=== PATIENT | female | born 1960 | race African-American/Black ===

== ENCOUNTER 2016-07-05 10:44 | Emergency (ER) | payer OTHER ==
[~2016-07-05] VITALS: Ht 157.5 cm; Wt 72.6 kg
[~2016-07-05 10:44] MED LIST: AMLODIPINE BESY10 MG ORAL; BENAZEPRIL HCL40 MG ORAL; COZAAR25 MG ORAL; IBUPROFEN600 MG ORAL; IRON325 M1 PO; LACTULOSE20 GM/301 ORAL; NORVASC5 MG ORAL; PAXIL10 MG ORAL; PROTONIX40 MG ORAL
[2016-07-05 11:17] LABS: APPEARANCE,URINE CLEAR; KETONES,URINE NEGATIVE (NEGATIVE); LEUKOCYTE ESTERASE ,URINE 1+ (NEGATIVE); NITRITE,URINE NEGATIVE (NEGATIVE); PH,URINE 6 (4.5-8.0); PROTEIN,URINE 1+ (NEGATIVE); UROBILINOGEN,URINE 1 MG/DL (0.0-1.0)
[2016-07-05 11:25] VITALS: BP 177/91
[2016-07-05 11:43] LABS: BACTERIA,URINE FEW /HPF; MUCUS,URINE FEW /LPF (NONE/OCC); RBC,URINE 0-2 /HPF (0 - 2); SQUAMOUS EPITHELIAL CELL,UR FEW /LPF (NONE/OCC)
[2016-07-05 12:40] VITALS: BP 165/91
[2016-07-05 12:42] VITALS: BP 165/91
--- NOTE | 2016-07-08 16:17 | Emergency Room Report ---
History of Present Illness General Chief Complaint: Abdominal Pain Source: Patient Present Illness HPI 55 YO F FRANCISCO JAVIER from her clinic where she states "my insurance card wouldnt swipe so they could do any tests." She is c/o polyuria and lower pelvic pain for 2-3 weeks. Denies assoc fever/chills, nausea/vomiting, flank pain, diarrhea , sick contacts. Takes [place] at home, states "its not helping." Endorses regular marijuana use. Denies ETOH or other drugs. Allergies: Coded Allergies: PENICILLINS (Verified Adverse Reaction, Unknown, GI UPSET, 12/29/13) Patient History Past Medical History: none Past Surgical History: none Pertinent Family History: none Social History: Reports: drug use, smoking Last Menstrual Period: hyst Now: No Immunizations: UTD Reviewed Nursing Documentation: PMH: Agreed, PSxH: Agreed Nursing Documentation-PMH Past Medical History: No History, Except For Hx Cardiac Problems: No Hx Hypertension: Yes - TB Hx Asthma: Yes Hx Cancer: No Hx Gastrointestinal Problems: Yes - Chronic constipation Hx Neurological Problems: No Review of Systems All Other Systems: negative except mentioned in HPI Physical Exam Vital Signs Date Time Temp Pulse Resp B/P Pulse Ox O2 Delivery O2 Flow Rate FiO2 07/05/16 10:44 98.1 64 20 177/91 99 Room Air Sp02 EP Interpretation: reviewed, normal General Appearance: normal inspection, well appearing, no apparent distress, alert, GCS 15, non-toxic Head: normocephalic, atraumatic ENT: normal ENT inspection, hearing grossly normal, normal voice Neck: normal inspection, full range of motion, supple, no bony tend Respiratory: normal inspection, lungs clear, normal breath sounds, no respiratory distress, no retraction, no wheezing Cardiovascular #1: regular rate, rhythm, no edema Gastrointestinal: normal inspection, normal bowel sounds, non tender, soft, no guarding, no hernia Genitourinary: no CVA tenderness Musculoskeletal: normal inspection, back normal, normal range of motion, Erlinda' s Sign negative Neurologic: normal inspection, alert, oriented x3, responsive, sales clerk III-XII nml as tested, motor strength/tone normal, speech normal Psychiatric: normal inspection, judgement/insight normal, mood/affect normal Skin: normal inspection, normal color, no rash Medical Decision Making Diagnostic Impression: Primary Impression: Pelvic pain Additional Impressions: Opiate dependence, continuous Drug-seeking behavior ER Course 55 YO F with polyuria and 2-3 weeks of pelvic pain, opiate dependence. VSS. Afebrile. No focal abd ttp on serial exam. UA negative for infection Sp hysterectomy Specific request made by patient for IV dilaudid Multiple recent visits and documentation for similar behavior in the past I reassured patient I do not see current need for additional laboratory or imaging testing at this time It seems unlikely that "insurance card wouldnt swipe" as her card does not have a magnetic strip Advised to followup with clinic as needed [place], patient also endorsing headache now. Was given tylenol/reglan PO with improvement. I doubt SAH or meningitis given well appearance, and the aforementioned HPI and PE. Last Vital Signs Date Time Temp Pulse Resp B/P Pulse Ox O2 Delivery O2 Flow Rate FiO2 07/05/16 12:42 98.1 89 20 165/91 100 Room Air Status: improved Disposition: HOME, SELF-CARE Condition: Improved Patient Instructions: Abdominal Pain, Adult Additional Instructions: - Please follow up at your clinic today or Friday KALYN RANGEL M.D. Jul 08, 2016 16:17
== END 2016-07-05 12:46 | disposition home or self-care (01) ==
LOC: EDBD 10:44 → EMR 11:30
DX: R10.2 Pelvic and perineal pain (principal); F11.20 Opioid dependence, uncomplicated; Z76.5 Malingerer [conscious simulation]; Z88.0 Allergy status to penicillin; I10 Essential (primary) hypertension; F17.200 Nicotine dependence, unspecified, uncomplicated; Z87.09 Personal history of other diseases of the respiratory system; Z87.19 Personal history of other diseases of the digestive system; R35.8 Other polyuria; F12.90 Cannabis use, unspecified, uncomplicated; Z90.710 Acquired absence of both cervix and uterus
CPT/HCPCS: 80300; 81003; 99283

== ENCOUNTER 2017-06-04 19:00 | Emergency (ER) | payer OTHER ==
[~2017-06-04] VITALS: Ht 160 cm; Wt 63.5 kg
--- NOTE | 2017-06-04 20:12 | Emergency Room Report ---
History of Present Illness General Chief Complaint: Abdominal Pain Source: Patient, EMS Present Illness HPI 56-year-old female, history of former alcohol abuse, pancreatitis, p/w abdominal pain 2 days. Patient states pain started gradually, localized to the mid and left lower quadrant, non radiating, sharp in nature, intermittent. No relieving or exacerbating factors. Severity is 5/10. Pt reports n/v, 2 episodes of nbnb vomiting, 2 episodes of watery non bloody diarrhea Denies fever, chills. No hx of abdominal surgeries. No hx of endoscopies/colonoscopies. Allergies: Coded Allergies: PENICILLINS (Verified Adverse Reaction, Unknown, GI UPSET, 12/29/13) Patient History Past Medical History: see triage record Past Surgical History: none Pertinent Family History: none Reviewed Nursing Documentation: PMH: Agreed, PSxH: Agreed Nursing Documentation-PMH Past Medical History: No History, Except For Hx Cardiac Problems: No Hx Hypertension: Yes Hx Asthma: Yes Hx Cancer: No Hx Gastrointestinal Problems: Yes - Chronic constipation Hx Neurological Problems: No Hx Cerebrovascular Accident: No - TB Review of Systems All Other Systems: negative except mentioned in HPI Physical Exam Vital Signs Date Time Temp Pulse Resp B/P (MAP) Pulse Ox O2 Delivery O2 Flow Rate FiO2 06/04/17 18:39 97.9 71 20 149/90 99 Room Air Sp02 EP Interpretation: reviewed, normal General Appearance: alert, GCS 15, non-toxic, moderate distress Head: normocephalic, atraumatic Eyes: bilateral eye normal inspection, bilateral eye PERRL, bilateral eye EOMI ENT: normal ENT inspection, normal pharynx, normal voice, moist mucus membranes Neck: normal inspection, full range of motion, supple Respiratory: normal inspection, lungs clear, normal breath sounds, no respiratory distress, no retraction, no wheezing, speaking full sentences, chest symmetrical Cardiovascular #1: normal inspection, regular rate, rhythm, normal capillary refill Cardiovascular #2: 2+ radial (R), 2+ radial (L) Gastrointestinal: other - LLQ tenderness no guarding or rigidity Musculoskeletal: normal inspection, back normal, normal range of motion, non- tender Neurologic: normal inspection, alert, oriented x3, responsive, motor strength/ tone normal, sensory intact, normal gait, speech normal Psychiatric: normal inspection, judgement/insight normal, memory normal Skin: normal inspection, normal color, no rash, warm/dry, well hydrated, normal turgor Medical Decision Making Diagnostic Impression: Primary Impression: Abdominal pain Additional Impression: Enteritis ER Course 56-year-old female with abdominal pain Status post cholecystectomy several years ago Differential Diagnosis: Gastritis, gastroenteritis, cholecystitis, appendicitis, diverticulitis, UTI/ pyelo, pancreatitis Plan: Basic labs, ua, ekg Pepcid, maalox, pain control, IVF, CT of the pelvis ER course: Patient has remained stable during ED stay. CT neg except possible enteritis, pt has been having diarrhea repeat abd exam benign HD stable will dc home Disposition: Patient is to be discharged to home. Patient is instructed to follow up with their primary care doctor within 5 days. Strict return precautions discussed with patient such as fever, chills, worsening/severe abdominal pain, nausea, vomiting, black or bloody stools, which may indicate severe illness. Patient verbalizes understanding and agrees with plan. Please note that this Emergency Department Report was dictated using [employer] technology software, occasionally this can lead to erroneous entry secondary to interpretation by the dictation equipment Rhythm Strip EP Interpretation: Yes Rate:79 Rhythm: NSR, no PVCs, no ectopy EKG Diagnostic Results EP Interpretation: Yes Rate: Bradycardiac Rhythm: NSR ST Segments: No acute changes ASA given to patient: No Laboratory Tests Test 06/04/17 19:37 06/04/17 19:45 Urine Color Yellow Urine Appearance Clear Urine pH 6 (4.5-8.0) Urine Specific [place] 1.020 (1.005-1.035) Urine Protein Negative (NEGATIVE) Urine Glucose (UA) Negative (NEGATIVE) Urine Ketones Negative (NEGATIVE) Urine Occult Blood Negative (NEGATIVE) Urine Nitrite Negative (NEGATIVE) Urine Bilirubin Negative (NEGATIVE) Urine Urobilinogen Normal MG/DL (0.0-1.0) Urine Leukocyte Esterase 1+ (NEGATIVE) H Urine RBC 0-2 /HPF (0 - 2) Urine WBC 2-4 /HPF (0 - 2) Urine Squamous Epithelial Cells Few /LPF (NONE/OCC) Urine Calcium Oxalate Crystals Few /LPF (NONE) Urine Amorphous Sediment Few /LPF (NONE) H Urine Bacteria Few /HPF (NONE) Urine Opiates Screen Negative (NEGATIVE) Urine Barbiturates Screen Negative (NEGATIVE) Phencyclidine (PCP) Screen Negative (NEGATIVE) Urine Amphetamines Screen Negative (NEGATIVE) Urine Benzodiazepines Screen Negative (NEGATIVE) Urine Cocaine Screen Negative (NEGATIVE) Urine Marijuana (THC) Screen Positive (NEGATIVE) H White Blood Count 6.2 K/UL (4.8-10.8) Red Blood Count 4.02 M/UL (4.20-5.40) L Hemoglobin 11.6 G/DL (12.0-16.0) L Hematocrit 37.7 % (37.0-47.0) Mean Corpuscular Volume 94 FL (80-99) Mean Corpuscular Hemoglobin 28.9 PG (27.0-31.0) Mean Corpuscular Hemoglobin Concent 30.8 G/DL (32.0-36.0) L Red Cell Distribution Width 11.8 % (11.6-14.8) Platelet Count 190 K/UL (150-450) Mean Platelet Volume 7.4 FL (6.5-10.1) Neutrophils (%) (Auto) 39.6 % (45.0-75.0) L Lymphocytes (%) (Auto) 48.0 % (20.0-45.0) H Monocytes (%) (Auto) 7.6 % (1.0-10.0) Eosinophils (%) (Auto) 3.0 % (0.0-3.0) Basophils (%) (Auto) 1.7 % (0.0-2.0) Sodium Level 144 MMOL/L (136-145) Potassium Level 3.5 MMOL/L (3.5-5.1) Chloride Level 109 MMOL/L (98-107) H Carbon Dioxide Level 28 MMOL/L (21-32) Anion Gap 7 mmol/L (5-15) Blood Urea Nitrogen 13 mg/dL (7-18) Creatinine 0.9 MG/DL (0.55-1.30) Estimate Glomerular Filtration Rate > 60 mL/min (>60) Glucose Level 79 MG/DL (74-106) Calcium Level 7.6 MG/DL (8.5-10.1) L Total Bilirubin 0.2 MG/DL (0.2-1.0) Aspartate Amino Transferase (AST) 16 U/L (15-37) Alanine Aminotransferase (ALT) 15 U/L (12-78) Alkaline Phosphatase 67 U/L (46-116) Troponin I 0.017 ng/mL (0.000-0.056) Total Protein 7.1 G/DL (6.4-8.2) Albumin 3.5 G/DL (3.4-5.0) Globulin 3.6 g/dL Albumin/Globulin Ratio 1.0 (1.0-2.7) Lipase 204 U/L (73-393) Serum Alcohol < 3 mg/dL CT/MRI/US Diagnostic Results CT/MRI/US Diagnostic Results : Imaging Test Ordered: CT abdo pelvis Impression Moderate to large amount of mainly proximal and transverse colonic stool with mildly prominent distal small bowel which may represent degree of small bowel delay or enteritis, nonspecific Normal caliber appendix without secondary signs No free air or free fluid Status post cholecystectomy Abdominal solid organs within limits Lung bases are clear VIA STAT RADD Last Vital Signs Date Time Temp Pulse Resp B/P (MAP) Pulse Ox O2 Delivery O2 Flow Rate FiO2 06/04/17 18:39 97.9 71 20 149/90 99 Room Air Disposition: HOME, SELF-CARE Condition: Improved Lj Wright M.D. Jun 04, 2017 20:12
[2017-06-04 20:17] LABS: BASOPHILS % (AUTO) 1.7 % (0.0-2.0); MEAN CORPUSCULAR HEMOGLOBIN 28.9 PG (27.0-31.0); MEAN CORPUSCULAR HGB CONC 30.8 G/DL (32.0-36.0); MEAN CORPUSCULAR VOLUME 94 FL (80-99); MEAN PLATELET VOLUME 7.4 FL (6.5-10.1); MONOCYTES % (AUTO) 7.6 % (1.0-10.0); NEUTROPHILS % (AUTO) 39.6 % (45.0-75.0); PLATELET COUNT 190 K/UL (150-450); RED BLOOD COUNT 4.02 M/UL (4.20-5.40); RED CELL DISTRIBUTION WIDTH 11.8 % (11.6-14.8); WHITE BLOOD COUNT 6.2 K/UL (4.8-10.8)
[2017-06-04 20:26] LABS: APPEARANCE,URINE CLEAR; KETONES,URINE NEGATIVE (NEGATIVE); LEUKOCYTE ESTERASE ,URINE 1+ (NEGATIVE); NITRITE,URINE NEGATIVE (NEGATIVE); PH,URINE 6 (4.5-8.0); PROTEIN,URINE NEGATIVE (NEGATIVE); UROBILINOGEN,URINE NORMAL MG/DL (0.0-1.0)
[2017-06-04 20:36] LABS: ANION GAP 7 mmol/L (5-15); CALCIUM 7.6 MG/DL (8.5-10.1); CARBON DIOXIDE 28 MMOL/L (21-32); CHLORIDE 109 MMOL/L (98-107); CREATININE 0.9 MG/DL (0.55-1.30); GLOMERULAR FILTRATION RATE > 60 mL/min (>60); POTASSIUM 3.5 MMOL/L (3.5-5.1); SODIUM 144 MMOL/L (136-145)
[2017-06-04 20:41] LABS: ALANINE AMINOTRANSFERASE 15 U/L (12-78); ASPARTATE AMINO TRANSFERASE 16 U/L (15-37); LIPASE 204 U/L (73-393); TOTAL PROTEIN 7.1 G/DL (6.4-8.2)
[2017-06-04 20:48] LABS: AMORPHOUS SEDIMENT,UR FEW /LPF; BACTERIA,URINE FEW /HPF; CALCIUM OXALATE CRYSTALS,UR FEW /LPF; RBC,URINE 0-2 /HPF (0 - 2); SQUAMOUS EPITHELIAL CELL,UR FEW /LPF (NONE/OCC)
[2017-06-04] MEDS ORDERED: ZOFRAN ODT4 MG ORAL (21:51)
[2017-06-04 22:23] VITALS: BP 131/71
[2017-06-04 22:39] VITALS: BP 131/71
--- NOTE | 2017-06-05 09:24 | Diagnostic Imaging Report ---
Clinical Indication: Abdominal pain and nausea Technique: No oral contrast utilized, per emergency room physician request IV administration nonionic contrast. Venous phase spiral acquisition obtained through the abdomen and pelvis. Multiplanar reconstructions were generated. Total dose length product 779.88 mGycm. CTDIvol(s) 16.14 mGy. Dose reduction achieved using automated exposure control Comparison: 12/29/2013 Findings: The appendix is normal. There is no evidence of acute diverticulosis or diverticulitis. Small bowel loops are prominent, fluid-filled, but no transition point and no collapsed distal small bowel are evident. Distal esophagus, stomach, duodenum are unremarkable. There is a small fat-containing umbilical hernia Multiple subcentimeter low-attenuation lesions are seen within the liver. These are not evident previously, but. Have been less evident due to lack of contrast administration the prior study. The gallbladder is surgically absent. No biliary ductal dilatation. The pancreas, spleen, adrenals, kidneys are unremarkable. No retroperitoneal or mesenteric mass or adenopathy. The uterus is absent. No pelvic mass or adenopathy. The included lung bases are clear. There are degenerative changes of the lumbar spine Impression: Prominent fluid-filled distal small bowel loops, may reflect mild enteritis changes or ileus No acute process otherwise. No evidence of bowel obstruction. Normal appendix Subcentimeter low-attenuation liver lesions, too small to characterize, most likely benign simple cysts or bile hamartomas Surgically absent uterus and gallbladder Degenerative spondylosis. This agrees with the preliminary interpretation provided overnight by [facility]. The CT scanner at [facility] is accredited by the [employer] and the scans are performed using protocols designed to limit radiation exposure to as low as reasonably achievable to attain images of sufficient resolution adequate for diagnostic evaluation.
--- NOTE | 2017-06-17 00:19 | Cardiology Report ---
APPROVED REPORT EKG Measurement Heart [id number] Sinus bradycardia Otherwise normal ECG
== END 2017-06-04 22:40 | disposition home or self-care (01) ==
LOC: EDBD 19:00 → EMR 21:45
DX: K52.9 Noninfective gastroenteritis and colitis, unspecified (principal); Z88.0 Allergy status to penicillin; I10 Essential (primary) hypertension; J45.909 Unspecified asthma, uncomplicated; K59.09 Other constipation
CPT/HCPCS: 36415; 74177; 80053; 80307; 80329; 81003; 83690; 84484; 85025; 93005; 96361; 96374; 96375; 99284; J2405; Q9967; S0028

== ENCOUNTER 2017-10-10 06:41 | Emergency (ER) | payer OTHER ==
[~2017-10-10] VITALS: Ht 157.5 cm; Wt 77.1 kg
[2017-10-10 06:37] VITALS: BP 155/87
[~2017-10-10 06:41] MED LIST changes: +LORATADINE10 M2 PO; +PERCOCET 10-321 EAC1 PO; +ZOFRAN ODT4 MG ORAL
[2017-10-10] MEDS ORDERED: Morphine Sulfate 4mg/ml Inj IM ONE ×3 (07:00→08:30)
[2017-10-10] MEDS ORDERED: DiphenhydrAMINE 50mg/ml Inj IM ONE (07:00)
[2017-10-10] MEDS ORDERED: Ketorolac 30mg Inj IM ONE (07:00)
[2017-10-10 07:27] VITALS: BP 140/75
--- NOTE | 2017-10-10 07:30 | Emergency Room Report ---
History of Present Illness General Chief Complaint: Pain Source: Patient Present Illness HPI Patient presents emergency department today complaining of severe left lower extremity pain. Patient states that she has been struggling with arthritis for the last 2 years. She states that she sees a pain management physician and takes Percocet. She has severe worsening of her knee and lower extremity pain and back pain over the course of last couple days. She states that it so bad she can't walk. She called 911 and came in for further evaluation. She states that she has seen her pain management physician a few days ago and was scheduled for a cortisone shot midmonth. She denies any recent trauma. Denies any dysuria urinary frequency or vaginal bleeding. Denies any abdominal pain. States the pain is very severe.No other modifying factors. No other associated signs and symptoms. No other complaints were noted. Allergies: Coded Allergies: PENICILLINS (Verified Adverse Reaction, Unknown, GI UPSET, 12/29/13) Patient History Past Medical History: HTN, asthma, other - Pancreatitis Past Surgical History: none Pertinent Family History: none Social History: Denies: smoking, alcohol use, drug use Reviewed Nursing Documentation: PMH: Agreed; PSxH: Agreed Nursing Documentation-PMH Hx Hypertension: Yes Hx Asthma: Yes Hx Cancer: No Hx Gastrointestinal Problems: Yes - PANCREATITIS Hx Neurological Problems: No Hx Cerebrovascular Accident: No - TB Review of Systems All Other Systems: negative except mentioned in HPI Physical Exam Vital Signs Date Time Temp Pulse Resp B/P (MAP) Pulse Ox O2 Delivery O2 Flow Rate FiO2 10/10/17 06:33 97.7 77 16 135/87 98 Room Air 97.7 Sp02 EP Interpretation: reviewed, normal General Appearance: normal inspection, well appearing, no apparent distress, alert Head: atraumatic Eyes: bilateral eye normal inspection ENT: normal ENT inspection, hearing grossly normal, normal voice Neck: normal inspection, full range of motion, supple, no bony tend Respiratory: normal inspection, lungs clear, normal breath sounds, no respiratory distress, no retraction, no wheezing Cardiovascular #1: regular rate, rhythm, no edema Gastrointestinal: normal inspection, normal bowel sounds, non tender, soft, no guarding, no hernia Genitourinary: no CVA tenderness Musculoskeletal: normal inspection, back normal, decreased range of motion - Of the leg because of pain., other - Tender left leg. Positive straight leg raise. Neurologic: normal inspection, alert, responsive, speech normal Psychiatric: normal inspection, judgement/insight normal, mood/affect normal Skin: normal inspection, normal color, no rash Medical Decision Making ER Course Patient presents emergency department today complaining severe lower back pain. Leg pain. Differential considerations include radiculopathy, back strain, arthritis just to name a few. Patient's exam is consistent with radiculopathy. We'll attempt to treat the patient's pain. Patient states that she was going to see her pain management physician today. Patient states that she has plenty of Percocet. We'll recommend follow-up with pain specialist. Return to ER for any worsening symptoms and as needed. Last Vital Signs Date Time Temp Pulse Resp B/P (MAP) Pulse Ox O2 Delivery O2 Flow Rate FiO2 10/10/17 06:57 97.7 10/10/17 06:37 72 17 155/87 100 Room Air Status: improved Disposition: HOME, SELF-CARE Condition: Stable Referrals: NOT CHOSEN [facility]/,REFERRING (PCP) CARY ALMAZAN M.D. October 10, 2017 07:30
[2017-10-10 08:57] VITALS: BP 149/79
== END 2017-10-10 09:01 | disposition home or self-care (01) ==
LOC: EDBD 06:41 → EMR 06:52
DX: M79.605 Pain in left leg (principal); M54.5 Low back pain; I10 Essential (primary) hypertension; J45.909 Unspecified asthma, uncomplicated; Z88.0 Allergy status to penicillin
CPT/HCPCS: 96372; 99283; J1200; J1885; J2270

== ENCOUNTER 2018-12-04 16:39 | Emergency (ER) | payer OTHER ==
[~2018-12-04] VITALS: Ht 165.1 cm; Wt 72.6 kg
[2018-12-04] MEDS ORDERED: VALACYCLOVIR1000 MG ORAL (16:45)
[2018-12-04] MEDS ORDERED: BENAZEPRIL HCL40 MG ORAL (16:45)
[2018-12-04] MEDS ORDERED: METRONIDAZOLE500 MG ORAL (16:45)
[2018-12-04] MEDS ORDERED: BIAXIN500 MG ORAL (16:45)
--- NOTE | 2018-12-04 17:15 | Emergency Room Report ---
History of Present Illness General Chief Complaint: Abdominal Pain Source: Patient, Medical Record Present Illness HPI Patient presents with complaints of initially mid abdominal pain however also reports pain in her buttock area reports pain is worse with sitting Patient has had hemorrhoids in the past patient provides significant history of upper and lower scoping performed about 1 month ago she reports that everything was normal that they had seen a small polyp but did not feel it was anything serious patient also reports recently being seen by her GI specialist and was given combination of medication Denies any vomiting or diarrhea she does feel constipated denies any fevers or chills also reports that she is being treated for bladder infection Allergies: Coded Allergies: PENICILLINS (Verified Adverse Reaction, Unknown, GI UPSET, 12/29/13) Patient History Past Medical History: see triage record Pertinent Family History: none Reviewed Nursing Documentation: PMH: Agreed; PSxH: Agreed Nursing Documentation-PMH Hx Hypertension: Yes Hx Asthma: Yes Hx Cancer: No Hx Gastrointestinal Problems: Yes - PANCREATITIS Hx Neurological Problems: No Hx Cerebrovascular Accident: No - TB Review of Systems All Other Systems: negative except mentioned in HPI Physical Exam Vital Signs Date Time Temp Pulse Resp B/P (MAP) Pulse Ox O2 Delivery O2 Flow Rate FiO2 12/04/18 16:36 97.9 72 18 132/76 (94) 98 Room Air Sp02 EP Interpretation: reviewed, normal General Appearance: well appearing, no apparent distress Head: normocephalic, atraumatic Eyes: bilateral eye PERRL, bilateral eye EOMI ENT: hearing grossly normal, normal pharynx, no angioedema Neck: supple Respiratory: lungs clear, no retraction, no accessory muscle use Cardiovascular #1: regular rate, rhythm Gastrointestinal: non tender - However subjectively points to mid epigastric area for discomfort, soft Rectal: other - 2 small external hemorrhoids approximately 3 and 6:00 Genitourinary: no CVA tenderness Musculoskeletal: normal inspection Neurologic: alert, oriented x3 Skin: no rash, palpation normal Medical Decision Making Diagnostic Impression: Primary Impression: Abdominal pain ER Course With the history exam and presentation, multiple differentials considered, including but not limited to appendicitis, gastritis, cholecystitis, diverticulitis Given the patient's complaints previous colonoscopy I did obtain CT imaging for further evaluation CT does not show any acute pathology Patient also had Anusol placed with some relief Patient's urine sample does show infectious pathology at this time she reports that she is taking some antibiotic for that however did not bring it with her and does not recall the name given that the patient is already In treatment I did not add a different medicine to this Patient also appears to be getting treated for H. pylori and will have close follow-up with her primary physician Labs Test 12/04/18 17:42 White Blood Count 6.7 K/UL (4.8-10.8) Red Blood Count 4.65 M/UL (4.20-5.40) Hemoglobin 14.0 G/DL (12.0-16.0) Hematocrit 41.9 % (37.0-47.0) Mean Corpuscular Volume 90 FL (80-99) Mean Corpuscular Hemoglobin 30.0 PG (27.0-31.0) Mean Corpuscular Hemoglobin Concent 33.4 G/DL (32.0-36.0) Red Cell Distribution Width 11.3 % (11.6-14.8) Platelet Count 207 K/UL (150-450) Mean Platelet Volume 6.9 FL (6.5-10.1) Neutrophils (%) (Auto) 56.9 % (45.0-75.0) Lymphocytes (%) (Auto) 33.4 % (20.0-45.0) Monocytes (%) (Auto) 6.6 % (1.0-10.0) Eosinophils (%) (Auto) 1.8 % (0.0-3.0) Basophils (%) (Auto) 1.4 % (0.0-2.0) Urine Color Yellow Urine Appearance Slightly cloudy Urine pH 6 (4.5-8.0) Urine Specific [place] 1.025 (1.005-1.035) Urine Protein 1+ (NEGATIVE) Urine Glucose (UA) Negative (NEGATIVE) Urine Ketones 3+ (NEGATIVE) Urine Blood Negative (NEGATIVE) Urine Nitrite Negative (NEGATIVE) Urine Bilirubin Negative (NEGATIVE) Urine Urobilinogen 1 MG/DL (0.0-1.0) Urine Leukocyte Esterase 3+ (NEGATIVE) Urine RBC 0 /HPF (0 - 2) Urine WBC 15-20 /HPF (0 - 2) Urine Squamous Epithelial Cells Many /LPF (NONE/OCC) Urine Bacteria Moderate /HPF (NONE) Sodium Level 145 MMOL/L (136-145) Potassium Level 3.4 MMOL/L (3.5-5.1) Chloride Level 106 MMOL/L (98-107) Carbon Dioxide Level 29 MMOL/L (21-32) Anion Gap 10 mmol/L (5-15) Blood Urea Nitrogen 13 mg/dL (7-18) Creatinine 1.2 MG/DL (0.55-1.30) Estimat Glomerular Filtration Rate 56.0 mL/min (>60) Glucose Level 93 MG/DL (74-106) Calcium Level 9.7 MG/DL (8.5-10.1) Total Bilirubin 0.6 MG/DL (0.2-1.0) Aspartate Amino Transf (AST/SGOT) 19 U/L (15-37) Alanine Aminotransferase (ALT/SGPT) 21 U/L (12-78) Alkaline Phosphatase 81 U/L (46-116) Total Protein 8.2 G/DL (6.4-8.2) Albumin 4.2 G/DL (3.4-5.0) Globulin 4.0 g/dL Albumin/Globulin Ratio 1.0 (1.0-2.7) Lipase 79 U/L (73-393) CT/MRI/US Diagnostic Results CT/MRI/US Diagnostic Results : Impression CT abdomen pelvisIMPRESSION: Fluid and gas-filled small bowel loops are nonspecific but may represent enteritis or ileus in the appropriate clinical setting. No other acute abnormality of the abdomen or pelvis. Last Vital Signs Date Time Temp Pulse Resp B/P (MAP) Pulse Ox O2 Delivery O2 Flow Rate FiO2 12/04/18 16:36 97.9 72 18 132/76 (94) 98 Room Air Status: improved Disposition: HOME, SELF-CARE Condition: Improved Referrals: CORI WHITNEY,REFERRING (PCP) Additional Instructions: Patient is provided with the discharge instructions notified to follow up with primary doctor in the next 2-3 days otherwise return to the er with any worsening symptoms. Please note that this report is being documented using [employer] technology. This can lead to erroneous entry secondary to incorrect interpretation by the dictating instrument. Mario Gonzalez DO Dec 04, 2018 17:15
--- NOTE | 2018-12-04 17:50 | Diagnostic Imaging Report ---
EXAM: CT Abdomen and Pelvis Without Intravenous Contrast CLINICAL HISTORY: PAIN TECHNIQUE: Axial computed tomography images of the abdomen and pelvis without intravenous contrast. CTDI is 11.59 mGy and DLP is 513.56 mGy-cm. One or more of the following dose reduction techniques were used: automated exposure control, adjustment of the mA and/or kV according to patient size, use of iterative reconstruction technique. COMPARISON: CT abdomen/pelvis on 06/04/2017 FINDINGS: Evaluation of solid organs somewhat limited without IV contrast. Liver: No focal lesion. Spleen: No focal lesion. Small splenules. Gallbladder: Prior cholecystectomy. Pancreas: No acute inflammation. No mass. Adrenal glands: No mass. Kidneys: Normal. No hydronephrosis or stone. No mass. Bowel: Normal appendix. Fluid and gas-filled small bowel loops are nonspecific but may represent enteritis or ileus. No bowel obstruction. Urinary bladder: No wall thickening or mass. Reproductive organs: Prior hysterectomy. Muscles: No mass. Subcutaneous tissues: Small fat-containing umbilical hernia. Peritoneal space: No free fluid. Lymph nodes: No lymphadenopathy. Vessels: Mild atherosclerotic changes of the vasculature. No aneurysm. Bones: Degenerative changes of the spine. No acute fracture or bony lesion. Lung bases: Normal. IMPRESSION: Fluid and gas-filled small bowel loops are nonspecific but may represent enteritis or ileus in the appropriate clinical setting. No other acute abnormality of the abdomen or pelvis.
[2018-12-04 18:24] LABS: BASOPHILS % (AUTO) 1.4 % (0.0-2.0); EOSINOPHILS % (AUTO) 1.8 % (0.0-3.0); HEMATOCRIT 41.9 % (37.0-47.0); LYMPHOCYTES % (AUTO) 33.4 % (20.0-45.0); MEAN CORPUSCULAR VOLUME 90 FL (80-99); MONOCYTES % (AUTO) 6.6 % (1.0-10.0); NEUTROPHILS % (AUTO) 56.9 % (45.0-75.0); PLATELET COUNT 207 K/UL (150-450); RED BLOOD COUNT 4.65 M/UL (4.20-5.40); RED CELL DISTRIBUTION WIDTH 11.3 % (11.6-14.8); WHITE BLOOD COUNT 6.7 K/UL (4.8-10.8)
[2018-12-04 18:28] LABS: APPEARANCE,URINE SLIGHTLY CLOUDY; BILIRUBIN, URINE NEGATIVE (NEGATIVE); GLUCOSE, URINE (UA) NEGATIVE (NEGATIVE); KETONES,URINE 3+ (NEGATIVE); LEUKOCYTE ESTERASE ,URINE 3+ (NEGATIVE); NITRITE,URINE NEGATIVE (NEGATIVE); PH,URINE 6 (4.5-8.0); PROTEIN,URINE 1+ (NEGATIVE); UROBILINOGEN,URINE 1 MG/DL (0.0-1.0)
[2018-12-04 18:30] LABS: COLOR,URINE YELLOW
[2018-12-04 18:38] LABS: ANION GAP 10 mmol/L (5-15); BLOOD UREA NITROGEN 13 mg/dL (7-18); CALCIUM 9.7 MG/DL (8.5-10.1); CARBON DIOXIDE 29 MMOL/L (21-32); CHLORIDE 106 MMOL/L (98-107); CREATININE 1.2 MG/DL (0.55-1.30); POTASSIUM 3.4 MMOL/L (3.5-5.1); SODIUM 145 MMOL/L (136-145)
[2018-12-04 18:42] LABS: ALANINE AMINOTRANSFERASE 21 U/L (12-78); ALBUMIN 4.2 G/DL (3.4-5.0); ALKALINE PHOSPHATASE 81 U/L (46-116); ASPARTATE AMINO TRANSFERASE 19 U/L (15-37); BILIRUBIN,TOTAL 0.6 MG/DL (0.2-1.0)
[2018-12-04] MEDS ORDERED: Bactrim-DS 1 tab ORAL ONE (18:45)
[2018-12-04 19:03] VITALS: BP 130/76
--- NOTE | 2018-12-04 19:12 | NUR ---
ED Nurse Note: leonard [id number] from home for abd pain ermd eval done blood and urine was sent and ct done vss meds well tolerated.
[2018-12-04] MEDS ORDERED: Dicyclomine HCl 10mg/5ml oral soln ORAL ONE (19:15)
[2018-12-04] MEDS ORDERED: Mylanta II UD 30ml ORAL ONE (19:15)
[2018-12-04 20:00] VITALS: BP 127/86
--- NOTE | 2018-12-04 20:00 | NUR ---
ED Nurse Note: pt cleared to be d/c per ERMD, pt discharge and aftercare instruction provided, pt advised to continue to take medication prescribed by pt's pcp, pt education done via discussion and handout, pt advised to follow up with pcp or return to ed if changes in condition, pt verbalized understanding and agrees with plan, vss, ambulatory w/steady gait, iv d/c and id band removed, pt left w/ all belongings.
== END 2018-12-04 20:00 | disposition home or self-care (01) ==
LOC: EDBD 16:39 → EMR 16:56
DX: R10.9 Unspecified abdominal pain (principal); I10 Essential (primary) hypertension; Z86.11 Personal history of tuberculosis
CPT/HCPCS: 36415; 74176; 80053; 81003; 83690; 85025; 87086; 99284

== ENCOUNTER 2018-12-12 19:58 | Emergency (ER) | payer OTHER ==
[~2018-12-12] VITALS: Ht 170.2 cm; Wt 68.0 kg
[~2018-12-12 19:58] MED LIST changes: +BIAXIN500 MG ORAL; +METRONIDAZOLE500 MG ORAL; +VALACYCLOVIR1000 MG ORAL
[2018-12-12] MEDS ORDERED: SULFAMETHOXAZO480 ML ORAL (20:05)
[2018-12-12] MEDS ORDERED: CIPROFLOXACIN750 MG ORAL (20:05)
[2018-12-12 20:12] VITALS: BP 156/92
--- NOTE | 2018-12-12 20:15 | NUR ---
ER Nurse Note: Pt BIBA [id number] from place of stay c/o RT ear pain and bleeding after taking 2 different types of antibiotics today at 1930. Pt stated she put a Q-tip in her ear and noticed blood. Pt has hearing in both ears, a&ox4, VSS, no signs of distress. No active bleeding noted. Will continue to [facility].
[2018-12-12] MEDS ORDERED: Lidocaine 1% 10mg/ml/EPI 0.01mg/ml 20ml INJ ONE (20:30)
[2018-12-12] MEDS ORDERED: BACITRACIN ZIN1 EACH TOPIC (20:35)
[2018-12-12] MEDS ORDERED: Bacitracin Oint UD TOPIC ONE (20:45)
--- NOTE | 2018-12-12 21:11 | Emergency Room Report ---
History of Present Illness General Chief Complaint: Earache Source: Patient Present Illness HPI Patient is a 58-year-old female presented after increased right-sided ear discomfort and bleeding. Patient denies any recent trauma. She reports having recent use of Q-tips. She reports having some pain after using a headphones. She denies any fever or cough. She denies any hearing loss. Allergies: Coded Allergies: PENICILLINS (Verified Adverse Reaction, Unknown, GI UPSET, 12/29/13) Patient History Past Medical History: see triage record Now: No Reviewed Nursing Documentation: PMH: Agreed; PSxH: Agreed Nursing Documentation-PMH Past Medical History: No History, Except For Hx Hypertension: Yes Hx Asthma: Yes Hx Cancer: No Hx Gastrointestinal Problems: Yes - PANCREATITIS Hx Neurological Problems: No Hx Cerebrovascular Accident: No - TB Review of Systems All Other Systems: negative except mentioned in HPI Physical Exam Vital Signs Date Time Temp Pulse Resp B/P (MAP) Pulse Ox O2 Delivery O2 Flow Rate FiO2 12/12/18 20:01 98.1 96 12 156/92 (113) 96 Room Air General Appearance: alert, GCS 15, non-toxic, Chronically Ill Head: normocephalic, atraumatic ENT: hearing grossly normal, normal voice, other - right ear canal abrasion Neck: full range of motion, supple Respiratory: no respiratory distress, speaking full sentences Cardiovascular #1: normal inspection, regular rate, rhythm, no edema Gastrointestinal: normal inspection Musculoskeletal: no calf tenderness Neurologic: normal inspection, alert, oriented x3, responsive, normal gait Psychiatric: mood/affect normal Skin: no rash Medical Decision Making Diagnostic Impression: Primary Impression: Abrasion of ear canal ER Course .Patient presented for right earache. Differential diagnosis include was not limited to otitis media, canal abrasion, ruptured TM among others. Patient has a benign exam and does not appear to require any further imaging or laboratory testing at this time. Patient is noted to have some abrasion to right ear canal. Patient's ear was having minimal bleeding. Topical lidocaine with epinephrine was instilled to control the bleeding. Patient was subsequently patient was subsequently covered with bacitracin ointment. TM appears to be intact. Patient was advised to follow-up with ENT. She is advised to return if she has any concerns. Last Vital Signs Date Time Temp Pulse Resp B/P (MAP) Pulse Ox O2 Delivery O2 Flow Rate FiO2 12/12/18 20:12 98.1 98 12 156/92 96 Room Air Status: improved Disposition: HOME, SELF-CARE Scripts Bacitracin Zinc* (BACITRACIN ZINC*) 1 Each Packet 1 APPLIC TOPIC THREE TIMES A DAY, #20 PACKET Prov: Alexis Garcia MD 12/12/18 Patient Instructions: Alexis Martines MD Dec 12, 2018 21:11
--- NOTE | 2018-12-12 21:20 | NUR ---
ER Nurse Note: All orders completed per ERMD orders. No bleeding in RT ear after meds given and topical cream applied. Pt refuses to leave ER after being discharged. Pt stated ERMD did not fully treat her; was able to rationally talk to pt.
[2018-12-12 21:40] VITALS: BP 152/88
--- NOTE | 2018-12-12 21:40 | NUR ---
ER Nurse Note: Security was called to escort pt to lobby. Pt yelled "I am going to mike this place" as she walked with steady gait and with a phone that is charged. Pt seen, treated, medically cleared for discharge by ERMD. Discharge instuctions and prescriptions given with repeat verbalization by pt. Emphasized to follow up with primay care provider. All orders completed per ERMD orders. Pt a&ox4, VSS, no signs of distress. ID band removed. Pt left with all belongings, left with own transportation.
== END 2018-12-12 21:40 | disposition home or self-care (01) ==
LOC: EDBD 19:58 → EMR 20:22
DX: S00.411A Abrasion of right ear, initial encounter (principal); X58.XXXA Exposure to other specified factors, initial encounter; Y92.9 Unspecified place or not applicable; Z88.0 Allergy status to penicillin; I10 Essential (primary) hypertension; Z86.11 Personal history of tuberculosis
CPT/HCPCS: 99283

== ENCOUNTER 2020-01-24 01:49 | Inpatient (IN) | payer MEDICAID, OTHER ==
[~2020-01-24] VITALS: Ht 165.1 cm; Wt 80.7 kg
[~2020-01-24 01:49] MED LIST changes: +BACITRACIN ZIN1 EACH TOPIC; +CIPROFLOXACIN750 MG ORAL; +NAPROXEN250 MG ORAL; +SULFAMETHOXAZO480 ML ORAL
[2020-01-24 02:00] VITALS: BP 113/74
--- NOTE | 2020-01-24 02:00 | NUR ---
ED Nurse Note: Pt brought into ED by REJI ALVARES 26 for c/o back pain that radiates to R flank x 2 days. Pt is aaox4, breathing is normal and unlabored. Pt is ambulatory with steady gait. Vital signs are stable.
--- NOTE | 2020-01-24 02:30 | NUR ---
ED Nurse Note: IV line established, blood drawn by RN and sent to lab. Urine sample also sent to lab.
[2020-01-24 02:41] LABS: BASOPHILS % (AUTO) 1.1 % (0.0-2.0); EOSINOPHILS % (AUTO) 5.3 % (0.0-3.0); HEMATOCRIT 38.6 % (37.0-47.0); HEMOGLOBIN 12.7 G/DL (12.0-16.0); LYMPHOCYTES % (AUTO) 46.6 % (20.0-45.0); MEAN CORPUSCULAR VOLUME 93 FL (80-99); MONOCYTES % (AUTO) 6.8 % (1.0-10.0); NEUTROPHILS % (AUTO) 40.2 % (45.0-75.0); PLATELET COUNT 177 K/UL (150-450); RED BLOOD COUNT 4.16 M/UL (4.20-5.40); RED CELL DISTRIBUTION WIDTH 11.9 % (11.6-14.8); WHITE BLOOD COUNT 8.3 K/UL (4.8-10.8)
[2020-01-24 02:42] LABS: APPEARANCE,URINE CLEAR; BILIRUBIN, URINE NEGATIVE (NEGATIVE); COLOR,URINE PALE YELLOW; GLUCOSE, URINE (UA) NEGATIVE (NEGATIVE); KETONES,URINE NEGATIVE (NEGATIVE); LEUKOCYTE ESTERASE ,URINE 1+ (NEGATIVE); NITRITE,URINE NEGATIVE (NEGATIVE); PH,URINE 5 (4.5-8.0); PROTEIN,URINE NEGATIVE (NEGATIVE); UROBILINOGEN,URINE NORMAL MG/DL (0.0-1.0)
[2020-01-24 02:51] LABS: ANION GAP 6 mmol/L (5-15); BLOOD UREA NITROGEN 21 mg/dL (7-18); CALCIUM 8.6 MG/DL (8.5-10.1); CARBON DIOXIDE 33 MMOL/L (21-32); CHLORIDE 101 MMOL/L (98-107); CREATININE 1.4 MG/DL (0.55-1.30); POTASSIUM 3.8 MMOL/L (3.5-5.1); SODIUM 139 MMOL/L (136-145)
[2020-01-24 02:55] LABS: ALANINE AMINOTRANSFERASE 20 U/L (12-78); ALBUMIN 3.6 G/DL (3.4-5.0); ALBUMIN/GLOBULIN RATIO 0.9 (1.0-2.7); ALKALINE PHOSPHATASE 77 U/L (46-116); ASPARTATE AMINO TRANSFERASE 18 U/L (15-37); BILIRUBIN,TOTAL 0.3 MG/DL (0.2-1.0)
[2020-01-24] MEDS ORDERED: Morphine Sulfate 4mg/ml Inj (IV USE ONLY) IVP ONE ×2 (03:30→05:30)
--- NOTE | 2020-01-24 03:55 | Diagnostic Imaging Report ---
EXAM: CT Abdomen and Pelvis Without Intravenous Contrast CLINICAL HISTORY: ABD PAIN TECHNIQUE: Axial computed tomography images of the abdomen and pelvis without intravenous contrast. CTDI is 7.8 mGy and DLP is 378.3 mGy-cm. One or more of the following dose reduction techniques were used: automated exposure control, adjustment of the mA and/or kV according to patient size, use of iterative reconstruction technique. COMPARISON: 11/26/18 FINDINGS: Artifacts: Study mildly degraded by motion. Lung bases: Unremarkable. No mass. No consolidation. ABDOMEN: Liver: Unremarkable. Gallbladder and bile ducts: Status post cholecystectomy. No ductal dilation. Pancreas: Unremarkable. No ductal dilation. Spleen: Unremarkable. No splenomegaly. Adrenals: Unremarkable. No mass. Kidneys and ureters: Unremarkable. No obstructing stones. No hydronephrosis. Stomach and bowel: Unremarkable. No obstruction. No mucosal thickening. PELVIS: Appendix: Normal appendix. Bladder: Unremarkable. No stones. Reproductive: Unremarkable as visualized. ABDOMEN and PELVIS: Intraperitoneal space: Unremarkable. No free air. No significant fluid collection. Bones/joints: No acute fracture. No dislocation. Soft tissues: Unremarkable. Vasculature: Unremarkable. No abdominal aortic aneurysm. Lymph nodes: Unremarkable. No enlarged lymph nodes. IMPRESSION: No acute findings
--- NOTE | 2020-01-24 04:00 | NUR ---
ED Nurse Note: Pt is sleeping in bed at this time, NAD. Will cont. to monitor pt.
--- NOTE | 2020-01-24 05:11 | Emergency Room Report ---
History of Present Illness General Chief Complaint: Back Pain-No Injury Source: Patient Present Illness HPI 59-year-old female with past medical history of GERD, hypertension, anemia presents with chief complaint of abdominal pain in the epigastric region radiating to back and R flank x 2 days. Worse postprandial Denies headache, weakness, numbness, paresthesia, chest pain, shortness of breath, vomiting, diarrhea, dysuria The patient's symptoms were gradual onset, severity was moderate, duration since 2 days. Quality: Aching Past medical history: GERD, hypertension, anemia Past surgical history: Breast surgery kidney instrumentation, Smoking: Occasional Alcohol use: Denies Drug use: Denies Review of systems: CONST: No fevers or chills, No night sweats PULMONARY: No productive cough, No shortness of breath CARDIAC: No chest pain, No palpitations GI: No vomiting, No diarrhea , No melena_or_BRBPR : No dysuria, No hematuria, No discharge NEURO: No new_focal_weakness_or_numbness, No confusion, No vision changes 14 point Review of Systems is otherwise negative except per HPI Physical Exam: GENERAL: Awake_alert_ nontoxic, no acute distress Spo2 98% on RA -normal EYES: Extraocular muscles are intact. Conjunctivae clear. Lids without swelling ENT: External nose and ear normal_in_appearance. Oropharynx clear. Head_ atraumatic, Moist_oral_mucosa NECK: No JVD. No meningismus. No thyromegaly. Supple. Trachea midline RESP: Normal respiratory effort. Symmetric rise. No stridor. Clear_to_ auscultation_No_rales_No_wheezes CARDIAC: Regular rate and regular rhytm. No_significant pedal edema. ABDOMEN: Soft. Nondistended. Mild epigastric tenderness to palpation. Negative Gates sign. Negative Rovsing sign no_rebound_or_guarding. MSK: Normal muscle tone, without rigidity. Extremities without asymmetric deformity or swelling. SKIN: Warm and dry. No visible cyanosis or pallor NEUROLOGIC: Alert, oriented x3. Motor_and_sensation_grossly_intact. No truncal ataxia. Gait_normal Psych: Normal mood and affect, normal judgment and insight - COORDINATION OF CARE Case was discussed with: Patient and patient's physician Any labs and imaging that were ordered were interpreted as part of the medical decision making: Medical Decision Making/Plan: Differential diagnosis includes pancreatitis, cholecystitis, choledocholithiasis , hepatitis, small bowel obstruction, atypical appendicitis, gastroparesis, gastritis, peptic ulcer disease, among others. Patient is well appearing with stable vital signs. Abdominal exam is mildly tender in epigastric region but is non peritoneal with no guarding or rebound. Labs show elevated lipase level of 500. Patient requesting multiple rounds of pain meds 2/2 pain. EKG shows sinus bradycardia CT is negative for pseudocyst or necrotizing infection. No acute intraabdominal emergency. The patients symptoms are not consistent with ACS (acute coronary syndrome), symptoms are not exertional, EKG without obvious ischemic change. I spoke with Dr. Rodriguez, and reviewed the patients presentation, workup, results, and treatment. They will admit the patient for further care and evaluation, and assume care of the patient at this time. Allergies: Coded Allergies: PENICILLINS (Verified Adverse Reaction, Unknown, GI UPSET, 12/29/13) COVID-19 Screening Contact w/high risk pt: No Experienced COVID-19 symptoms?: No COVID-19 Testing performed CONSTRUCTION CODE ADMINISTRATOR: No Nursing Documentation-PMH Hx Hypertension: Yes Hx Asthma: Yes Hx Cancer: No Hx Gastrointestinal Problems: Yes - PANCREATITIS Hx Neurological Problems: No Hx Cerebrovascular Accident: No - TB Physical Exam Vital Signs Date Time Temp Pulse Resp B/P (MAP) Pulse Ox O2 Delivery O2 Flow Rate FiO2 01/24/20 01:51 98.2 62 16 113/74 (87) 98 Room Air Sp02 EP Interpretation: reviewed, normal Medical Decision Making Diagnostic Impression: Primary Impression: Abdominal pain Additional Impressions: Pancreatitis Chronic GERD EKG Diagnostic Results CASEY Olvera 12-lead EKG (interpreted by me) Time: 14 Indication: Rhythm analysis Tracing visualized and Interpreted by me. Rhythm: Sinus bradycardia Rate: 56 bpm QTc: 409 Morphology: sinus bradycardia, No STEMI Impression: sinus bradycardia Reevaluation Time: 04:00 Last Vital Signs Date Time Temp Pulse Resp B/P (MAP) Pulse Ox O2 Delivery O2 Flow Rate FiO2 01/24/20 02:00 98.2 62 16 113/74 98 Room Air Status: improved Disposition: ADMITTED INPATIENT Admit Decision Time: 05:00 Condition: Stable Referrals: NON PHYSICIAN (PCP) Little Maradiaga D.O. Jan 24, 2020 05:11
--- NOTE | 2020-01-24 05:30 | NUR ---
ED Nurse Note: Pt woke up complaining of pain again. ERMD made aware, will administer medication.
--- NOTE | 2020-01-24 05:34 | NUR ---
NURSE NOTES: Received telephone report from YISSEL Ellsworth (ED). Per ED RN, will do the medication reconciliation before pt comes up.
[2020-01-24] MEDS ORDERED: ASPIRIN81 MG ORAL (05:38)
--- NOTE | 2020-01-24 05:55 | NUR ---
ED Nurse Note: Pt is stable for transfer to MS unit per ERMD. Pt is aaox4, no signs of respiratory distress at this time. Pt taken to unit via wheelchair with all belongings by RN. Pt IV is patent and intact. Receiving nurse made aware of pt vital signs and endorsed plan of care. Pt ambulated to MS bed without complication.
[2020-01-24 06:05] VITALS: BP 132/71
--- NOTE | 2020-01-24 06:05 | NUR ---
NURSE NOTES: Received report & pt from YISSEL Ellsworth via wheel chair. Pt is ambulatory, a&ox4, in room air. No s/s of acute distress & c/o 12/16 pain. Skin assessment done, intact. IV site intact & S/L'd. Med recon done. Pt belongings signed & accounted for. Would like to keep lee with her. Plan of care discussed. Will call Dr. Rodriguez for admission orders.
--- NOTE | 2020-01-24 07:13 | NUR ---
NURSE HAND-OFF: Important Events on Shift:new admit Patient Status: stable Diet: NPO Pending Orders: none Pending Results/Labs:none Pending MD notification:none Latest Vital Signs: Temperature 98.3 , Pulse 55 , B/P 132 /71 , Respiratory Rate 19 , O2 SAT 100 , Room Air, O2 Flow Rate . Vital Sign Comment: none Latest Gutierrez Fall Score: 35 Fall Risk: Medium Risk Safety Measures: Call light , Bed Alarm , Side Rails , Bed position . Fall Precautions: Report given to YISSEL Stroud.
[2020-01-24 08:00] VITALS: BP 90/57
--- NOTE | 2020-01-24 08:00 | NUR ---
NURSE NOTES: Received report from Elke DEY, pt laying in bed with no signs of distress or other issues at this time, no complain of pain at this time. pt is NPO. IV abx: right AC gauge#20 running NS@100ml/hr. no skin issues. call light within reach, bed in lowest position. side rales up x2. I will f/u as needed.
[2020-01-24] MEDS: Pantoprazole Inj IVP SCH (09:16)
--- NOTE | 2020-01-24 11:48 | General Progress Note ---
Assessment/Plan Assessment/Plan: abd pain elevated lipase right sided abd pain, doubt pancreatitis start clears repeat labs drug screen CT reviewed abd us Subjective ROS Limited/Unobtainable: Yes Allergies: Coded Allergies: PENICILLINS (Verified Adverse Reaction, Unknown, GI UPSET, 12/29/13) Objective Last 24 Hour Vital Signs Date Time Temp Pulse Resp B/P (MAP) Pulse Ox O2 Delivery O2 Flow Rate FiO2 01/24/20 09:00 Room Air 01/24/20 08:00 97.5 53 16 90/57 (68) 97 01/24/20 06:19 Room Air 01/24/20 06:05 98.3 55 19 132/71 (91) 100 01/24/20 05:55 98.3 56 16 100/63 99 Room Air 01/24/20 02:00 98.2 62 16 113/74 98 Room Air 01/24/20 01:51 98.2 62 16 113/74 (87) 98 Room Air Intake and Output 01/23/20 01/24/20 19:00 07:00 Intake Total 0 ml Balance 0 ml Intake Oral 0 ml # Voids 1 Laboratory Tests 01/24/20 02:33: White Blood Count 8.3, Red Blood Count 4.16L, Hemoglobin 12.7, Hematocrit 38.6, Mean Corpuscular Volume 93, Mean Corpuscular Hemoglobin 30.4, Mean Corpuscular Hemoglobin Concent 32.8, Red Cell Distribution Width 11.9, Platelet Count 177, Mean Platelet Volume 7.2, Neutrophils (%) (Auto) 40.2L, Lymphocytes (%) (Auto) 46.6H, Monocytes (%) (Auto) 6.8, Eosinophils (%) (Auto) 5.3H, Basophils (%) ( Auto) 1.1, Urine Color Pale yellow, Urine Appearance Clear, Urine pH 5, Urine Specific [place] 1.020, Urine Protein Negative, Urine Glucose (UA) Negative, Urine Ketones Negative, Urine Blood Negative, Urine Nitrite Negative, Urine Bilirubin Negative, Urine Urobilinogen Normal, Urine Leukocyte Esterase 1+H, Urine RBC 0-2, Urine WBC 0-2, Urine Squamous Epithelial Cells ManyH, Urine Bacteria Few, Sodium Level 139, Potassium Level 3.8, Chloride Level 101, Carbon Dioxide Level 33H, Anion Gap 6, Blood Urea Nitrogen 21H, Creatinine 1.4H, Estimat Glomerular Filtration Rate 46.7, Glucose Level 100, Calcium Level 8.6, Total Bilirubin 0.3, Aspartate Amino Transf (AST/SGOT) 18, Alanine Aminotransferase (ALT/SGPT) 20, Alkaline Phosphatase 77, Total Protein 7.5, Albumin 3.6, Globulin 3.9, Albumin/Globulin Ratio 0.9L, Lipase 500H Height (Feet): 5 Height (Inches): 4.00 Weight (Pounds): 170 General Appearance: alert EENT: normal ENT inspection Neck: supple Cardiovascular: normal rate Respiratory/Chest: decreased breath sounds Abdomen: normal bowel sounds, non tender, soft Extremities: non-tender Graham Melissa MD Jan 24, 2020 11:48
[2020-01-24 12:00] VITALS: BP 99/56
[2020-01-24] MEDS: Morphine Sulfate 2mg/ml Inj(IV/IM USE ONLY) IVP PRN ×2 (13:28→22:24)
--- NOTE | 2020-01-24 13:30 | History and Physical Report ---
DATE OF ADMISSION: 01/24/2020 HISTORY OF PRESENT ILLNESS: This is a 59-year-old female, came to the emergency room for having dyspnea, had costochondritis, acute coronary syndrome, abdominal pain, history of opiate abuse and abrasion on ear. The patient is alert and oriented. MEDICATIONS: She is taking Norvasc, benazepril, iodine, ibuprofen, lactulose, Flagyl, naproxen, PPIs, Bactrim. ALLERGIES: NKA. FAMILY HISTORY: Noncontributory. SOCIAL HISTORY: Lives at home. PHYSICAL EXAMINATION: GENERAL: This is an elderly cachectic female, lying in bed. VITAL SIGNS: Blood pressure 90/57, pulse 53, respirations 16, temperature 97.6. HEENT: NAD. CHEST: Bilaterally clear. CARDIOVASCULAR: Regular rhythm. ABDOMEN: Soft, mild tenderness. GENITOURINARY: Deferred. LABORATORY DATA: White counts are 8.3, hemoglobin 13, hematocrit 38. Chemistry panel, BUN , creatinine 1.4. LFTs, lipase is 500. Urine is negative. Imaging, CT of abdomen showing unremarkable gallbladder. No ductal dilatation. Pancreas unremarkable. No acute finding. ASSESSMENT: 1. Abdominal pain. 2. Possible acute pancreatitis. PLAN: We will admit on a medical floor. NPO. I will PPI and Levaquin. Consider GI consult. Repeat lipase tomorrow. Manolo Rodriguez M.D. DR: ERNST JOB#: [id number] CC:
--- NOTE | 2020-01-24 13:48 | NUR ---
CASE MANAGEMENT: INITIAL REVIEW 59YR OLD FEMALE BIBA FROM HOME CC: BACK PAIN -NO INJURY SI:PANCREATITIS 98.2 62 16 113/74 98% ON RA LIPASE 500 BUN 21 CREAT 1.4 CO2 33 IS:IVF NS BOLUS X1 IV MORPHINE SULFATE X3 IV ZOFRAN X2 CT ABD-No acute findings \: 3E MED SURG UNIT PLAN: CONT HYDRATION AM LABS US ABD DRUG SCREEN ~IN PROCESS
--- NOTE | 2020-01-24 13:57 | NUR ---
*-* INSURANCE *-* UPDATED CLINICALS AND REVIEWS HAVE BEEN FAXED TO: [facility] FAX: [phone]
[2020-01-24 16:00] VITALS: BP 106/62
[2020-01-24] MEDS: Docusate 100mg cap ORAL SCH (17:15)
--- NOTE | 2020-01-24 19:21 | NUR ---
NURSE HAND-OFF: Important Events on Shift: 01/23: abd US done Patient Status: FULL Diet: advanced to full liquid diet Pending Orders: n/a Pending Results/Labs: 01/23: abd US results pending Pending MD notification: n/a Latest Vital Signs: Temperature 97.9 , Pulse 52 , B/P 106 /62 , Respiratory Rate 16 , O2 SAT 98 , Room Air, O2 Flow Rate . Vital Sign Comment: Latest Gutierrez Fall Score: 35 Fall Risk: Medium Risk Safety Measures: Call light Within Reach, Bed Alarm Zone 1, Side Rails Side Rails x2, Bed position Low and Locked. Fall Precautions: pt is able to ambulate around the room with the use of a FWW and staff supervision. Patient Fall Education Report given to Carli DEY, pt in stable condition. - given Morphine IV x1 - no BM since Wednesday 01/17. order obtained by Dr. Rodriguez to give MOM. - IVF @100ml/hr
--- NOTE | 2020-01-24 19:22 | NUR ---
NURSE NOTES: Received report from Maximus DEY. Rounding is done. Patient is a/ox4. Denied any pain at this time. No any distress noted at this time. Breathing is even and unlabored. IV site is intact and patent. BED is on alarm, locked, and lowest position. Call light within reach. Side railes up x2. Will continue to monitor.
[2020-01-24 20:00] VITALS: BP 120/78
[2020-01-24] MEDS: Milk of Magnesia 30ml Ud ORAL PRN (20:09)
[2020-01-24] MEDS: Miralax 17gm pkt ORAL SCH (20:09)
[2020-01-25] VITALS: BP 128/70
[2020-01-25 04:00] VITALS: BP 133/75
[2020-01-25 06:04] LABS: BASOPHILS % (AUTO) 1.6 % (0.0-2.0); EOSINOPHILS % (AUTO) 5.6 % (0.0-3.0); HEMATOCRIT 33.3 % (37.0-47.0); HEMOGLOBIN 11.1 G/DL (12.0-16.0); LYMPHOCYTES % (AUTO) 50.7 % (20.0-45.0); MEAN CORPUSCULAR VOLUME 91 FL (80-99); MONOCYTES % (AUTO) 8.4 % (1.0-10.0); NEUTROPHILS % (AUTO) 33.7 % (45.0-75.0); PLATELET COUNT 146 K/UL (150-450); RED BLOOD COUNT 3.65 M/UL (4.20-5.40); RED CELL DISTRIBUTION WIDTH 11.4 % (11.6-14.8); WHITE BLOOD COUNT 4.4 K/UL (4.8-10.8)
[2020-01-25 06:10] LABS: ALANINE AMINOTRANSFERASE 58 U/L (12-78); ALBUMIN/GLOBULIN RATIO 0.9 (1.0-2.7); ALKALINE PHOSPHATASE 70 U/L (46-116); ANION GAP 4 mmol/L (5-15); ASPARTATE AMINO TRANSFERASE 37 U/L (15-37); BILIRUBIN,TOTAL 0.6 MG/DL (0.2-1.0); BLOOD UREA NITROGEN 11 mg/dL (7-18); CALCIUM 8.6 MG/DL (8.5-10.1); CARBON DIOXIDE 30 MMOL/L (21-32); CHLORIDE 108 MMOL/L (98-107); CREATININE 1.2 MG/DL (0.55-1.30); POTASSIUM 4.4 MMOL/L (3.5-5.1); SODIUM 142 MMOL/L (136-145)
--- NOTE | 2020-01-25 07:12 | NUR ---
NURSE HAND-OFF: Important Events on Shift:[none] Patient Status: [stable] Diet: [full liquid] Pending Orders: [none] Pending Results/Labs:[none] Pending MD notification:[none] Latest Vital Signs: Temperature 98.7 , Pulse 54 , B/P 133 /75 , Respiratory Rate 18 , O2 SAT 97 , Room Air, O2 Flow Rate . Vital Sign Comment: [stable] Latest Gutierrez Fall Score: 35 Fall Risk: Medium Risk Safety Measures: Call light Within Reach, Bed Alarm Zone 1, Side Rails Side Rails x2, Bed position Low and Locked. Fall Precautions: Patient Fall Education Report given to [Kip RN].
[2020-01-25 08:00] VITALS: BP 109/81
[2020-01-25] MEDS: Milk of Magnesia 30ml Ud ORAL PRN (08:24)
[2020-01-25] MEDS: Pantoprazole Inj IVP SCH (08:24)
[2020-01-25] MEDS: Docusate 100mg cap ORAL SCH ×2 (08:24→17:44)
[2020-01-25] MEDS: Morphine Sulfate 2mg/ml Inj(IV/IM USE ONLY) IVP PRN ×3 (09:22→23:52)
--- NOTE | 2020-01-25 09:33 | General Progress Note ---
Assessment/Plan Assessment/Plan: abd pain elevated lipase right sided abd pain, doubt pancreatitis>>> fred normal lipase advance diet repeat labs drug screen>> THC positive CT reviewed abd us EGD in am anusol HC bowel regimen Subjective ROS Limited/Unobtainable: Yes Allergies: Coded Allergies: PENICILLINS (Verified Adverse Reaction, Unknown, GI UPSET, 12/29/13) Objective Last 24 Hour Vital Signs Date Time Temp Pulse Resp B/P (MAP) Pulse Ox O2 Delivery O2 Flow Rate FiO2 01/25/20 08:00 97.5 58 20 109/81 (90) 99 01/25/20 04:00 98.7 54 18 133/75 (94) 97 01/25/20 00:00 98.0 56 18 128/70 (89) 97 01/24/20 22:54 99.4 01/24/20 21:00 Room Air 01/24/20 20:00 99.4 52 17 120/78 (92) 99 01/24/20 16:00 97.9 52 16 106/62 (77) 98 01/24/20 12:00 97.7 50 16 99/56 (70) 97 Intake and Output 01/24/20 01/25/20 19:00 07:00 Intake Total 500 ml 1900 ml Balance 500 ml 1900 ml Intake Oral 500 ml 800 ml IV Total 1100 ml # Voids 3 4 Laboratory Tests 01/24/20 13:32: Urine Opiates Screen PositiveH, Urine Barbiturates Screen Negative, Phencyclidine (PCP) Screen Negative, Urine Amphetamines Screen Negative, Urine Benzodiazepines Screen Negative, Urine Cocaine Screen Negative, Urine Marijuana (THC) Screen PositiveH 01/25/20 04:55: White Blood Count 4.4L, Red Blood Count 3.65L, Hemoglobin 11.1L, Hematocrit 33.3L, Mean Corpuscular Volume 91, Mean Corpuscular Hemoglobin 30.4, Mean Corpuscular Hemoglobin Concent 33.4, Red Cell Distribution Width 11.4L, Platelet Count 146L, Mean Platelet Volume 7.7, Neutrophils (%) (Auto) 33.7L, Lymphocytes (%) (Auto) 50.7H, Monocytes (%) (Auto) 8.4, Eosinophils (%) (Auto) 5.6H, Basophils (%) (Auto) 1.6, Sodium Level 142, Potassium Level 4.4, Chloride Level 108H, Carbon Dioxide Level 30, Anion Gap 4L, Blood Urea Nitrogen 11, Creatinine 1.2, Estimat Glomerular Filtration Rate 55.8, Glucose Level 81, Calcium Level 8.6, Total Bilirubin 0.6, Aspartate Amino Transf (AST/SGOT) 37, Alanine Aminotransferase (ALT/SGPT) 58, Alkaline Phosphatase 70, Total Protein 6.3L, Albumin 3.0L, Globulin 3.3, Albumin/Globulin Ratio 0.9L, Amylase Level 97 , Lipase 95 Height (Feet): 5 Height (Inches): 4.00 Weight (Pounds): 170 General Appearance: alert EENT: PERRL/EOMI Neck: supple Cardiovascular: normal rate Respiratory/Chest: decreased breath sounds Abdomen: soft, hypoactive bowel sounds, tender Extremities: non-tender Graham Melissa MD Jan 25, 2020 09:33
--- NOTE | 2020-01-25 11:46 | Diagnostic Imaging Report ---
ABDOMINAL ULTRASOUND - COMPLETE INDICATION: Abdominal pain. TECHNIQUE: Multiplanar ultrasound examination of the abdomen with greyscale and doppler imaging. COMPARISON: Same day CT abdomen pelvis FINDINGS: Liver: The liver is normal in size and echogenicity. No focal abnormalities are noted. Gallbladder: Surgically absent. Common bile duct: Normal in size, measuring 6 mm. Pancreas: The visualized portion of pancreas is normal in echogenicity. There are no masses. Kidneys: The kidneys are normal in size and echogenicity. There is no hydronephrosis. Spleen: The spleen is normal in size and echogenicity. Aorta: The aorta is normal in caliber. IMPRESSION: No acute sonographic findings.
[2020-01-25 12:00] VITALS: BP 129/80
--- NOTE | 2020-01-25 13:29 | Progress Note ---
DATE: 01/25/2020 SUBJECTIVE: This is an elderly female, who came with generalized weakness, headache, dyspnea, acute coronary syndrome, and substance abuse. The patient is currently doing better. OBJECTIVE: VITAL SIGNS: Blood pressure is 109/81, pulse 58. No fever. CHEST: Bilaterally clear. CARDIOVASCULAR: Regular rhythm. ABDOMEN: Soft. EXTREMITIES: CCE. LABORATORY DATA: CBC unremarkable. Chemistry, albumin is 3, BUN 11, creatinine 1.2. Lipase was 500, now 95. Toxicology screen was positive for marijuana and opiates. ASSESSMENT: 1. Acute pancreatitis. 2. Substance abuse. 3. Weakness. PLAN: We will currently continue current treatment. Continue hydrocodone and lactulose. Continue Colace, PPI, Levaquin, and sodium. Manolo Rodriguez M.D. DR: AIDEN JOB#: [id number] CC:
--- NOTE | 2020-01-25 13:52 | NUR ---
CASE MANAGEMENT: REVIEW 01/25/20 SI:PANCREATITIS 97.5 58 20 109/81 99% ON RA WBC 4.4 ALB 3.0 IS:IV LEVAQUIN Q48HR IV PROTONIX QD IV MORPHINE SULFATE Q4HR/PRN \: 3E MED SURG UNIT PLAN: EGD IN AM CONTROL ABD PAIN
--- NOTE | 2020-01-25 14:12 | NUR ---
*-* INSURANCE *-* UPDATED CLINICALS AND REVIEWS HAVE BEEN FAXED TO: [facility]ULT[facility] /[facility] AUTH#[id number] FAX CLINICALS TO [facility] MULTANI/[facility]AN[facility] P:[phone] F:[phone]
--- NOTE | 2020-01-25 15:00 | NUR ---
NURSE NOTES: PATIENT REMAINS STABLE. ONLY BM X1. TOLERATING REGULAR MEAL. CONSENT OBTAIN FOR EGD TOMORROW WITH DR. CAZARES.
[2020-01-25 16:00] VITALS: BP 149/87
[2020-01-25] MEDS: Lactulose 20gm/30ml UDC ORAL SCH (17:44)
[2020-01-25] MEDS: Hydrocortisone 25mg supp RECTAL SCH (17:44)
--- NOTE | 2020-01-25 18:00 | NUR ---
NURSE NOTES: COVID -19 OBTAINED RAPID COVID-19 TEST VIA LEFT NARE. WALKED DOWN TO LAB AND LOGGED IN.
[2020-01-25] MEDS ORDERED: VITAMIN D310 MC1 PO (18:18)
[2020-01-25] MEDS ORDERED: COQ-1030 M1 PO (18:18)
[2020-01-25] MEDS ORDERED: MULTIVITAMINS1 EAC2 ORAL (18:18)
--- NOTE | 2020-01-25 18:19 | NUR ---
NURSE NOTES: COVID-19 RESULTS RECEIVED FROM [facility] ; RESULT P[OSITIVE. NOTIFIED CHARGE NURSE WILLEM. PLACED CALL TO DR. PATTERSON. NURSING PATIENT EXPERIENCE COORDINATOR NOTIFIED BY CN. AWAITING TO TRANSFER PATIENT TO [place] [id number] FLOOR.
--- NOTE | 2020-01-25 18:29 | NUR ---
NURSE NOTES: COVID-[address] PATTERSON TO INFORM OF POSITIVE COVID-19 TEST. NO INTERVENTIONS AT THIS TIME. AWAITING BED TRANSFER FROM NURSING [facility].
--- NOTE | 2020-01-25 19:34 | NUR ---
NURSE HAND-OFF: Important Events on Shift: COVID POSITIVE @ 1800. Patient Status: STABLE Diet: REGULAR Pending Orders: NONE Pending Results/Labs:NONE Pending MD notification:NOTIFIED DR. PATTERSON/ PLACED CALL TO DR. CAZARES AND ENDORSED TO NIGHT RN TO FOLLOW-UP. Latest Vital Signs: Temperature 98.0 , Pulse 50 , B/P 149 /87 , Respiratory Rate 18 , O2 SAT 100 , Room Air, O2 Flow Rate . Vital Sign Comment: STABLE Latest Gutierrez Fall Score: 15 Fall Risk: Low Risk Safety Measures: Call light Within Reach, Bed Alarm Zone 1, Side Rails Side Rails x2, Bed position Low and Locked. Fall Precautions: Door Sign Patient Fall Education Report given to CHIQUITA QUINTEROS RN.
--- NOTE | 2020-01-25 19:35 | NUR ---
NURSE NOTES: Received report from Kip RN. Rounding is done. Patient is a/ox4. Denied any pain at this time. Patient had positive COVID. No any distress noted at this time. Breathing is even and unlabored. IV site is intact and patent. BED is on alarm, locked, and lowest position. Call light within reach. Side railes up x2. Will continue to monitor.
[2020-01-25 20:00] VITALS: BP 155/78
[2020-01-25] MEDS: Miralax 17gm pkt ORAL SCH ×2 (20:34→20:47)
--- NOTE | 2020-01-25 21:25 | NUR ---
HAND-OFF: Patient transferred to . GIVEN report to Nu DEY. Patient is stable condition.
--- NOTE | 2020-01-25 22:00 | NUR ---
NURSE NOTES: Patient received from Margarito Maravilla. Patient is masked upon transfer. Belongings verified at bedside. Oriented to new room and unit. Call light provided. Instructed to call for assistance. Patient is aware of NPO status after midnight for EGD. Will continue with plan of care.
[2020-01-26] VITALS: BP 142/68
[2020-01-26 04:00] VITALS: BP 137/79
[2020-01-26] MEDS: Morphine Sulfate 2mg/ml Inj(IV/IM USE ONLY) IVP PRN ×2 (04:08→08:22)
--- NOTE | 2020-01-26 06:55 | NUR ---
NURSE NOTES: Spoke with GI lab, reported that Dr. Melissa cancelled patient's EGD d/t Covid. Received order from Dr. Melissa to resume to Regular diet. Order entered and noted.
[2020-01-26 07:31] LABS: BASOPHILS % (AUTO) 1.6 % (0.0-2.0); EOSINOPHILS % (AUTO) 2.4 % (0.0-3.0); HEMATOCRIT 35.9 % (37.0-47.0); LYMPHOCYTES % (AUTO) 31.5 % (20.0-45.0); MEAN CORPUSCULAR VOLUME 91 FL (80-99); MONOCYTES % (AUTO) 7.3 % (1.0-10.0); NEUTROPHILS % (AUTO) 57.2 % (45.0-75.0); PLATELET COUNT 136 K/UL (150-450); RED BLOOD COUNT 3.93 M/UL (4.20-5.40); RED CELL DISTRIBUTION WIDTH 11.4 % (11.6-14.8); WHITE BLOOD COUNT 6.4 K/UL (4.8-10.8)
[2020-01-26 07:32] LABS: ALANINE AMINOTRANSFERASE 47 U/L (12-78); ALBUMIN 3.2 G/DL (3.4-5.0); ALBUMIN/GLOBULIN RATIO 0.9 (1.0-2.7); ALKALINE PHOSPHATASE 78 U/L (46-116); ANION GAP 7 mmol/L (5-15); ASPARTATE AMINO TRANSFERASE 30 U/L (15-37); BILIRUBIN,TOTAL 0.5 MG/DL (0.2-1.0); BLOOD UREA NITROGEN 12 mg/dL (7-18); CALCIUM 8.7 MG/DL (8.5-10.1); CARBON DIOXIDE 28 MMOL/L (21-32); CHLORIDE 106 MMOL/L (98-107); POTASSIUM 4.2 MMOL/L (3.5-5.1); SODIUM 141 MMOL/L (136-145)
--- NOTE | 2020-01-26 07:35 | NUR ---
NURSE HAND-OFF: Important Events on Shift:[kept NPO at midnight prior to procedure but GI lab called to cancel. Diet order resumed] Patient Status: [stable] Diet: [Regular] Pending Orders: [n/a] Pending Results/Labs:[see chart] Pending MD notification:[n/a] Latest Vital Signs: Temperature 98.1 , Pulse 56 , B/P 137 /79 , Respiratory Rate 18 , O2 SAT 100 , Room Air, O2 Flow Rate . Vital Sign Comment: [stable] Latest Gutierrez Fall Score: 15 Fall Risk: Low Risk Safety Measures: Call light Within Reach, Bed Alarm Zone 1, Side Rails Side Rails x2, Bed position Low and Locked. Fall Precautions: Door Sign Patient Fall Education Report given to [YISSEL East].
--- NOTE | 2020-01-26 07:47 | NUR ---
NURSE NOTES: received report from YISSEL Judge. patient in bed. al&ox4, verbally responsive. no respiratory distress noted. headache. IV on rac running [id number]. ambulatory. droplet and contact isolation for covid positive. PPE at all times. EGD canceled. resumed regular diet. bed in the lowest position and locked. call light within reach. will continue to provide plan of care.
[2020-01-26 08:00] VITALS: BP 153/88
[2020-01-26] MEDS: Pantoprazole Inj IVP SCH (08:21)
[2020-01-26] MEDS: Docusate 100mg cap ORAL SCH (08:21)
[2020-01-26] MEDS: Hydrocortisone 25mg supp RECTAL SCH (08:21)
[2020-01-26] MEDS: Lactulose 20gm/30ml UDC ORAL SCH (08:21)
--- NOTE | 2020-01-26 10:03 | NUR ---
NURSE NOTES: patient was seen by Dr. Rodriguez. MD is aware EGD cancelled. received order phsycian consult with for positive covid. paged Dr. valencia. new prescription in the chart upon discharge.
--- NOTE | 2020-01-26 10:05 | General Progress Note ---
Assessment/Plan Assessment/Plan: abd pain elevated lipase right sided abd pain, doubt pancreatitis>>> now normal lipase advance diet repeat labs drug screen>> THC positive CT reviewed abd us>>>reviewed EGD canceled due to COVID + anusol HC bowel regimen Subjective ROS Limited/Unobtainable: Yes Allergies: Coded Allergies: PENICILLINS (Verified Adverse Reaction, Unknown, GI UPSET, 12/29/13) Objective Last 24 Hour Vital Signs Date Time Temp Pulse Resp B/P (MAP) Pulse Ox O2 Delivery O2 Flow Rate FiO2 01/26/20 08:00 98.2 58 18 153/88 (109) 99 01/26/20 04:00 98.1 56 18 137/79 (98) 100 01/26/20 00:00 97.7 62 18 142/68 (92) 100 01/25/20 21:00 Room Air 01/25/20 20:00 97.6 81 18 155/78 (103) 99 01/25/20 18:29 98.0 01/25/20 16:00 98.0 50 18 149/87 (107) 100 01/25/20 12:00 98.0 50 18 129/80 (96) 98 Intake and Output 01/25/20 01/26/20 19:00 07:00 Intake Total 1500 ml 1100 ml Balance 1500 ml 1100 ml Intake Oral 400 ml 200 ml IV Total 1100 ml 900 ml # Voids 6 4 # Bowel Movements 2 4 Laboratory Tests 01/26/20 04:15: White Blood Count 6.4, Red Blood Count 3.93L, Hemoglobin 12.0, Hematocrit 35.9L , Mean Corpuscular Volume 91, Mean Corpuscular Hemoglobin 30.5, Mean Corpuscular Hemoglobin Concent 33.4, Red Cell Distribution Width 11.4L, Platelet Count 136L, Mean Platelet Volume 7.6, Neutrophils (%) (Auto) 57.2, Lymphocytes (%) (Auto) 31.5, Monocytes (%) (Auto) 7.3, Eosinophils (%) (Auto) 2.4, Basophils (%) (Auto) 1.6, Sodium Level 141, Potassium Level 4.2, Chloride Level 106, Carbon Dioxide Level 28, Anion Gap 7, Blood Urea Nitrogen 12, Creatinine 1.0, Estimat Glomerular Filtration Rate > 60, Glucose Level 88, Calcium Level 8.7, Total Bilirubin 0.5, Aspartate Amino Transf (AST/SGOT) 30, Alanine Aminotransferase (ALT/SGPT) 47, Alkaline Phosphatase 78, Total Protein 6.9, Albumin 3.2L, Globulin 3.7, Albumin/Globulin Ratio 0.9L, Lipase 67L Height (Feet): 5 Height (Inches): 5.00 Weight (Pounds): 178 General Appearance: alert EENT: normal ENT inspection Neck: supple Cardiovascular: normal rate Respiratory/Chest: lungs clear Abdomen: normal bowel sounds, non tender, soft Extremities: non-tender Graham Melissa MD Jan 26, 2020 10:05
--- NOTE | 2020-01-26 10:44 | NUR ---
NURSE NOTES: received a call from Dr. Lopez. MD will see the patient later.
--- NOTE | 2020-01-26 11:15 | NUR ---
NURSE NOTES: patient vomited of undigested food and saliva. given Zofran as ordered. notified paxton Roldan. monitor for now.
[2020-01-26 12:00] VITALS: BP 156/89
--- NOTE | 2020-01-26 12:09 | NUR ---
NURSE NOTES: the patient was cleared by DR.Swaminathan YUEN. Notified Dr. Rodriguez and received order of discharge to home. resume home meds and see PCP one week after discharge. a new prescription is available in the patient chart. order noted and carried out.
--- NOTE | 2020-01-26 13:01 | NUR ---
NURSE NOTES: patient does not have a person to pick her up upon discharge. CM will schedule a transportation for the patient.
--- NOTE | 2020-01-26 13:04 | NUR ---
NURSE NOTES: a transportation scheduled at 1418 by [facility].
--- NOTE | 2020-01-26 14:42 | NUR ---
NURSE NOTES: patient was discharge to home via [facility] [facility] with fair condition. a&ox4,verbally responsive.no respiratory distress on room air. no pain at this time. removed IV and ID band. provided dc packet, new prescription. checked and counted belongings with patient. obtained sign. patient is able to self isolated at home and family members will help her. no fever. no coughing. no vomiting at this time.
--- NOTE | 2020-01-26 16:15 | Consultation ---
DATE OF CONSULTATION: 01/26/2020 INFECTIOUS DISEASES CONSULTATION CONSULTING PHYSICIAN: Nathalie Lopez MD. REFERRING PHYSICIAN: Manolo Rodriguez MD. REASON FOR CONSULTATION: COVID-19 pneumonia. HISTORY OF PRESENTING ILLNESS: This is a 59-year-old lady with history of costochondritis, acute chest syndrome, who comes in with headache along with dizziness and nausea. She was found to have COVID-19 positive. An Infectious Diseases consultation has been obtained for antibiotics. PAST MEDICAL HISTORY: 1. History of costochondritis. 2. Acute coronary syndrome. SOCIAL HISTORY: She smokes marijuana. No history of alcohol or drug use. FAMILY HISTORY: Her sister has heart disease and cancer. REVIEW OF SYSTEMS: RESPIRATORY: No fever or chills. No cough. No shortness of breath or chest pain. She denies any loss of smell or taste. CARDIAC: No chest pain. No palpitation. She did have dizziness. No syncope. GASTROINTESTINAL: She has nausea. No vomiting. No abdominal pain or diarrhea. MUSCULOSKELETAL: She complains of headache. She has back pain. MEDICATIONS: As an inpatient, she is on hydrocortisone twice a day rectally, lactulose, MiraLAX, milk of magnesia, docusate, Protonix, Levaquin, Zofran, morphine. ALLERGIES: She is allergic to penicillin. PHYSICAL EXAMINATION: VITAL SIGNS: Temperature of 98.2, T-max of 99.4, pulse of , respiratory rate of 18, blood pressure 153/88, O2 saturation of 99% on room air. Examination deferred due to COVID-19. LABORATORY AND DIAGNOSTIC DATA: White count 6.4, hemoglobin 12, hematocrit 35.9, MCV 91, platelet count of 136, neutrophils of 57%. Sodium 141, potassium 4.2, chloride 106, bicarb 28, BUN 12, creatinine 1, glucose 88, calcium 8.7. Total bilirubin 0.5. AST 30, ALT 47, alkaline phosphatase 78. Total protein 6.9, albumin 3.2. Lipase of 67. Amylase of 97. Lipase of 500 on 01/24/2020. UA showing 0 to 2 white cells. COVID-19 rapid test is positive on 01/25/2020. Abdominal ultrasound showing no acute findings. CT abdomen and pelvis showing no acute findings. ASSESSMENT: This is a 59-year-old lady with history of acute chest syndrome, costochondritis, who comes in with abdominal pain along with headache, back pain, nausea and found to have, 1. Pancreatitis is improving. 2. COVID-19 pneumonia. She is on room air with saturation of 99%. 3. Costochondritis. PLAN: 1. Discussed benefits and risks of use of ivermectin. The patient discussed it with her daughter and they prefer not to take the medication as she is comfortable now. 2. Discontinue Levaquin. 3. Counseled the patient to continue isolation for 10 more days and use a separate bedroom and utensils at home as she lives with her daughter. 4. Counseled the patient to stop smoking marijuana. 5. Okay for discharge from ID perspective. I would like to thank, Dr. Rodriguez for this consultation. Nathalie Lopez M.D. DR: BRENDAN JOB#: [id number] CC: Manolo Rodriguez MD.; Fax#: [phone]
--- NOTE | 2020-01-27 14:34 | Discharge Summary ---
Discharge Summary Discharge Summary _ DATE OF ADMISSION: 01/24/2020 DATE OF DISCHARGE: 01/26/2020 DISCHARGED BY: Dr. Rodriguez 89 years old female with past medical history of GERD , hypertension, anemia, presented with chief complaint of abdominal pain in the epigastric region radiating to the back and right flank for 2 days. REASON FOR ADMISSION: [] Worse after meals. She denied headache generalized weakness. No chest pain or shortness of breath. No vomiting diarrhea or dysuria. Upon evaluation vital signs were stable. Physical exam revealed mildly tender abdomen and epigastric region but not peritoneal no guarding or rebound. Laboratory work- up revealed elevated lipase above 500. CT of the head revealed no evidence of pseudocyst or necrotizing infection. No acute intra-abdominal pathology. No leukocytosis stable hemoglobin hematocrit. BUN 21, creatinine 1.4. Lipase 500 urine toxicology screen was positive for marijuana and opiates. Urinalysis revealed no evidence of urinary tract infection. In emergency department patient received antiemetic and antacid and admitted for further management Rapid COVID-19 was positive CONSULTANTS: supervisor stave finishing neurologist pulmonary ID specialist Dr. Lopez GI specialist Dr. Melissa exhibition organiser inspector filter tip/oncologist surgery psychiatrist HOSPITAL COURSE: Patient made to medical surgical floor. Patient was kept n.p.o. Patient started on the IV fluids. And improvement. And empiric antibiotic initiated. GI and ID consult requested. Patient started on proton pump inhibitors. Trended abdominal ultrasound revealed no acute sonographic findings. Repeated lipase next day 95. Amylase 97. Patient started on clear liquid diet and was advanced as tolerated. Initially plan EGD was canceled due to COVID positive. Bowel regimen instituted. Anusol suppository provided as needed Pulsoxymeter remained stable on room air. Albuterol with MDI was on board as needed. Discussed benefits and risks in the use of ivermectin teen patient discussed with her daughter prefer not to use it. Initially started Levaquin was discontinued. Patient was counseled to continuous isolation for total of 10 days and use separate bedroom and utensils at home while she lives with her daughter. Patient was counseled to stop marijuana. ID specialist cleared patient for discharge. Patient clinically stabilized and was ready for discharge with instruction on self-isolation at 410 days [] FINAL DIAGNOSES: COVID-19 infection Abdominal pain Elevated lipase Marijuana user DISCHARGE MEDICATIONS: See Medication Reconciliation list. DISCHARGE INSTRUCTIONS: [] Home. Follow-up with a primary care provider in 1 week. I have been assigned to dictate discharge summary for this account. I was not involved in the patient's management. Joanna Vora NP Jan 27, 2020 14:34
== END 2020-01-26 14:45 | disposition home or self-care (01) | DRG 137 ==
LOC: EDUNIT# 01:49 → EDBD 01:49 → EMR 02:17 → 3E 05:03 → EDBEDREQ 05:29 → 4E 01-25 21:30
DX: U07.1 COVID-19 (principal); K85.90 Acute pancreatitis without necrosis or infection, unspecified; J12.89 Other viral pneumonia; K21.9 Gastro-esophageal reflux disease without esophagitis; I10 Essential (primary) hypertension; R74.8 Abnormal levels of other serum enzymes; Z88.0 Allergy status to penicillin; M94.0 Chondrocostal junction syndrome [Tietze]; F12.90 Cannabis use, unspecified, uncomplicated
CPT/HCPCS: 36415; 74176; 76700; 80053; 80307; 81003; 82150; 83690; 85025; 93005; 96374; 96375; 96376; 99285; J2405; J7030; U0002

== ENCOUNTER 2020-02-11 09:53 | Emergency (ER) | payer OTHER ==
[~2020-02-11] VITALS: Ht 162.6 cm; Wt 68.0 kg
[~2020-02-11 09:53] MED LIST changes: +ASPIRIN81 MG ORAL; +COQ-1030 M1 PO; +MULTIVITAMINS1 EAC2 ORAL; +VITAMIN D310 MC1 PO
[2020-02-11 09:55] VITALS: BP 138/90
--- NOTE | 2020-02-11 10:10 | Emergency Room Report ---
History of Present Illness General Chief Complaint: Dyspnea/Respdistress Source: Patient, Medical Record Present Illness HPI Disclaimer: Please note that this report is being documented using DRAGON technology. This can lead to erroneous entry secondary to incorrect interpretation by the dictating instrument. HPI: 59-year-old female with a history of GERD, hypertension, pancreatitis recent diagnosis COVID-19 presents for evaluation of shortness of breath. She presents by EMS. Patient was diagnosed with COVID-19 2 weeks ago after an admission for pancreatitis. She was asymptomatic at that time. She has been at home since limiting contact. Denies fever, chills, cough. She reports exertional dyspnea and worsening dyspnea at rest. EMS found her sats are between 94 and 96% on room air without signs of severe respiratory distress. She denies chest pain, palpitations, fever, chills, vomiting, diarrhea or other symptoms at this time. Denies history of lung, diabetes, heart disease. 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 COVID-19 Screening: Positive COVID-19 COVID-19 Testing Source: [facility] [place] 2 weeks ago Nursing Documentation-PMH Past Medical History: No History, Except For Hx Cardiac Problems: Yes Hx Hypertension: Yes Hx Asthma: Yes Hx Cancer: No Hx Gastrointestinal Problems: Yes Hx Neurological Problems: No Hx Cerebrovascular Accident: No - TB Review of Systems All Other Systems: negative except mentioned in HPI Physical Exam Vital Signs Date Time Temp Pulse Resp B/P (MAP) Pulse Ox O2 Delivery O2 Flow Rate FiO2 02/11/20 09:48 98.2 90 18 135/87 (103) 97 Room Air Medical Decision Making Diagnostic Impression: Primary Impression: Dyspnea Additional Impression: COVID-19 virus not detected ER Course This a 59-year-old female recent diagnosis of COVID-19 presenting for shortness of breath. She arrives stable condition, 1% room air, vital signs otherwise within normal limits. Differential included but not limited to arrhythmia, ACS , pneumonia, bronchitis, persistent COVID-19, complications of COVID-19, among others. Chest x-ray does not show any evidence of infiltrate and EKG and labs are otherwise largely unremarkable. She is receiving IV fluids for slight elevation in creatinine and BUN. States she has been drinking much water over the past day. Satting 100% on room air comfortable. The patient states that she has been using her albuterol inhaler at home intermittently but I counseled her that she is maybe needing to use it more often though at this time I do not feel she requires breathing treatments and does not have any significant wheezing on exam. Also give her a shot of Decadron which may help her symptoms. Her repeat COVID-19 test today is negative. May be experiencing persistent shortness of breath due to her previous COVID-19 infection and may experience prolonged symptoms. I counseled her on maintaining quarantine precautions. She will follow-up with her PMD. Discussed reasons to return to the ED. She understands and agrees with the treatment plan. Laboratory Tests Test 02/11/20 09:40 White Blood Count 5.8 K/UL (4.8-10.8) Red Blood Count 4.50 M/UL (4.20-5.40) Hemoglobin 13.8 G/DL (12.0-16.0) Hematocrit 39.7 % (37.0-47.0) Mean Corpuscular Volume 88 FL (80-99) Mean Corpuscular Hemoglobin 30.7 PG (27.0-31.0) Mean Corpuscular Hemoglobin Concent 34.8 G/DL (32.0-36.0) Red Cell Distribution Width 11.2 % (11.6-14.8) L Platelet Count 213 K/UL (150-450) Mean Platelet Volume 7.5 FL (6.5-10.1) Neutrophils (%) (Auto) 38.2 % (45.0-75.0) L Lymphocytes (%) (Auto) 46.7 % (20.0-45.0) H Monocytes (%) (Auto) 11.2 % (1.0-10.0) H Eosinophils (%) (Auto) 2.0 % (0.0-3.0) Basophils (%) (Auto) 2.0 % (0.0-2.0) Sodium Level 142 MMOL/L (136-145) Potassium Level 3.6 MMOL/L (3.5-5.1) Chloride Level 102 MMOL/L (98-107) Carbon Dioxide Level 27 MMOL/L (21-32) Anion Gap 13 mmol/L (5-15) Blood Urea Nitrogen 23 mg/dL (7-18) H Creatinine 1.4 MG/DL (0.55-1.30) H Estimated Glomerular Filtration Rate 46.7 mL/min (>60) Glucose Level 124 MG/DL (74-106) H Calcium Level 9.8 MG/DL (8.5-10.1) Total Bilirubin 0.7 MG/DL (0.2-1.0) Aspartate Amino Transferase (AST) 22 U/L (15-37) Alanine Aminotransferase (ALT) 23 U/L (12-78) Alkaline Phosphatase 78 U/L (46-116) Troponin I 0.000 ng/mL (0.000-0.056) Pro-B-Type Natriuretic Peptide 27 pg/mL (0-125) Total Protein 8.4 G/DL (6.4-8.2) H Albumin 4.4 G/DL (3.4-5.0) Globulin 4.0 g/dL Albumin/Globulin Ratio 1.1 (1.0-2.7) Microbiology Date/Time Source Procedure Growth Status 02/11/20 09:40 Nasopharynx SARS-CoV-2 RdRp Gene Assay - Final Complete EKG Diagnostic Results EKG Time: 10:01 Rate: normal Rhythm: NSR Other Impression Sinus rhythm, normal axis, normal intervals, no ST segment changes. Rhythm Strip Diag. Results Rhythm Strip Time: 10:01 EP Interpretation: yes Rate: 79 Rhythm: NSR, no PVC's, no ectopy Last Vital Signs Date Time Temp Pulse Resp B/P (MAP) Pulse Ox O2 Delivery O2 Flow Rate FiO2 02/11/20 09:48 98.2 90 18 135/87 (103) 97 Room Air Disposition: HOME, SELF-CARE Condition: Stable Scripts Albuterol Sulfate* (ALBUTEROL SULFATE HHN*) 2.5 Mg/3 Ml Vial.neb 2.5 MG HHN Q4H PRN for Shortness of Breath, #25 VIAL Prov: Moe Reynolds MD 02/11/20 Moe Reynolds MD Feb 11, 2020 10:10
[2020-02-11 10:39] LABS: ANION GAP 13 mmol/L (5-15); BLOOD UREA NITROGEN 23 mg/dL (7-18); CALCIUM 9.8 MG/DL (8.5-10.1); CARBON DIOXIDE 27 MMOL/L (21-32); CHLORIDE 102 MMOL/L (98-107); CREATININE 1.4 MG/DL (0.55-1.30); POTASSIUM 3.6 MMOL/L (3.5-5.1); SODIUM 142 MMOL/L (136-145)
[2020-02-11 10:49] LABS: HEMATOCRIT 39.7 % (37.0-47.0); HEMOGLOBIN 13.8 G/DL (12.0-16.0); LYMPHOCYTES % (AUTO) 46.7 % (20.0-45.0); MEAN CORPUSCULAR VOLUME 88 FL (80-99); MONOCYTES % (AUTO) 11.2 % (1.0-10.0); NEUTROPHILS % (AUTO) 38.2 % (45.0-75.0); PLATELET COUNT 213 K/UL (150-450); RED CELL DISTRIBUTION WIDTH 11.2 % (11.6-14.8); WHITE BLOOD COUNT 5.8 K/UL (4.8-10.8)
[2020-02-11 10:50] LABS: ALANINE AMINOTRANSFERASE 23 U/L (12-78); ALBUMIN 4.4 G/DL (3.4-5.0); ALBUMIN/GLOBULIN RATIO 1.1 (1.0-2.7); ALKALINE PHOSPHATASE 78 U/L (46-116); ASPARTATE AMINO TRANSFERASE 22 U/L (15-37); BILIRUBIN,TOTAL 0.7 MG/DL (0.2-1.0)
[2020-02-11 11:22] VITALS: BP 130/83
[2020-02-11] MEDS ORDERED: ALBUTEROL2.5 MG/3 M HHN (11:29)
[2020-02-11] MEDS ORDERED: dexAMETHasone 10mg/ml Inj IV ONE (11:30)
--- NOTE | 2020-02-11 16:46 | Diagnostic Imaging Report ---
Indication: Shortness of breath Technique: One view of the chest Comparison: 04/11/2016 Findings: Again demonstrated are degenerative spondylosis changes. The heart size is normal. No significant change Impression: No acute process
--- NOTE | 2020-02-16 01:39 | Cardiology Report ---
APPROVED REPORT EKG Measurement Heart [id number] <Conclusion> Normal sinus rhythm Normal ECG
== END 2020-02-11 12:19 | disposition home or self-care (01) ==
LOC: EDBD 09:53 → EMR 12:11
DX: R06.00 Dyspnea, unspecified (principal); K21.9 Gastro-esophageal reflux disease without esophagitis; I10 Essential (primary) hypertension; J45.909 Unspecified asthma, uncomplicated; Z88.0 Allergy status to penicillin; Z86.11 Personal history of tuberculosis
CPT/HCPCS: 36415; 71045; 80053; 83880; 84484; 85025; 93005; 96361; 96374; J7030; U0002; Z7502; 99284

== ENCOUNTER 2020-02-17 01:06 | Emergency (ER) | payer OTHER ==
[~2020-02-17] VITALS: Ht 157.5 cm; Wt 77.1 kg
[~2020-02-17 01:06] MED LIST changes: +ALBUTEROL2.5 MG/3 M HHN
[2020-02-17 01:10] VITALS: BP 153/90
[2020-02-17] MEDS ORDERED: PERMETHRIN60 GM TOPIC (01:26)
[2020-02-17] MEDS ORDERED: BACTRIM DS TAB1 EAC1 ORAL (01:26)
[2020-02-17] MEDS ORDERED: ANUSOL-HC30 GM RC (01:26)
[2020-02-17] MEDS ORDERED: BENADRYL CRE1 APPLIC TOPIC (01:26)
--- NOTE | 2020-02-17 01:27 | Emergency Room Report ---
History of Present Illness General Chief Complaint: Pain Source: Patient Present Illness HPI Disclaimer: Please note that this report is being documented using [employer] technology. This can lead to erroneous entry secondary to incorrect interpretation by the dictating instrument. HPI: 59-year-old female presents for evaluation of multiple bites on the legs as well as painful bowel movements. Patient notes itching and scattered bite anaya over the lower extremities. Has been taking Benadryl without significant improvement. Noted a tender and swollen area over the left ankle. Denied drainage, skin breakdown, bleeding. No injury reported. No recent exposures or travel. Secondly, the patient has been having painful bowel movements. Reports some bright red bleeding on the tissue paper but denies marija melena, hematochezia or significant bleeding. Denies abdominal pain, vomiting. Does report some soft bowel movements lately. Prior history of hemorrhoids. 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 EOMI. Resp: Normal work of breathing Abdomen: Soft, nontender, nondistended. Rectal: Nonthrombosed external hemorrhoid at the 4 o'clock position. No bleeding, no skin breakdown. Skin: Intact. Scattered secretions lower extremities. There is one area that appears to be slightly edematous and erythematous over the medial aspect of the left ankle. Mild warmth to touch. No evidence of deep space infection. Overlying small punctate-looking wounds that may be consistent with an insect bite MSK: Normal tone and bulk. Moving all extremities. No obvious deformity. Neuro: Awake and alert. Mentating appropriately Medical Decision Making Diagnostic Impression: Primary Impression: Hemorrhoids Additional Impression: Cellulitis ER Course Is a 59-year-old female presenting for evaluation of itching over the lower extremities and painful bowel movements. Patient's presentation consistent with bug bites over the ankles 1 of which appears to be slightly cellulitic. Will start on Bactrim as she is allergic to penicillins. No evidence of deep space infection. Also prescribe permethrin cream possible scabies. Patient appears to have a nonthrombosed hemorrhoid. Will treat with sits baths, stool softeners, topical ointments. We will follow-up with her general practitioner. Discussed reasons to return to the ED. She understands and agrees with the treatment plan. Last Vital Signs Date Time Temp Pulse Resp B/P (MAP) Pulse Ox O2 Delivery O2 Flow Rate FiO2 02/17/20 01:07 98.2 98 18 153/90 (111) 99 Room Air Disposition: HOME, SELF-CARE Condition: Stable Scripts Docusate Sodium* (DOCUSATE SODIUM*) 100 Mg Capsule 100 MG ORAL THREE TIMES A DAY, #30 CAP Prov: Moe Reynolds MD 02/17/20 Diphenhydramine HCl/Zinc Acet (Benadryl Itch Stopping Crm) 28.3 Gm Cream..g. 1 APPLIC TOPIC TID, #1 TUBE Prov: Moe Reynolds MD 02/17/20 Trimethoprim/Sulfamethoxazole 160/800* (BACTRIM DS TABLET*) 1 Each Tablet 1 TAB ORAL Q12H, #14 TAB 0 Refills Prov: Moe Reynolds MD 02/17/20 Permethrin* (ELIMITE*) 60 Gm Cream..g. 1 APPLIC TOPIC ONCE, #1 TUBE 0 Refills Apply cream from head to toe; leave on for 8-14 hours before washing off with water Prov: Moe Reynolds MD 02/17/20 Hydrocortisone Hc 2.5% Cream (ANUSOL-HC 2.5% CREAM) Y Cr 30 GM RC TID, #30 GM Prov: Moe Reynolds MD 02/17/20 Referrals: [facility] Patient Instructions: Disposable Sitz Bath, Hemorrhoids Additional Instructions: Please follow-up with your primary care doctor in the next 1 to 3 days to discuss this emergency department visit and for reevaluation. If you have any new or worsening symptoms please return to the emergency department for reevaluation. Please note that this report is being documented using [employer] technology. This can lead to erroneous entry secondary to incorrect interpretation by the dictating instrument. Permethrin 5% cream for all family members Apply from neck down Leave on for 8-12hr before washing off Moe Reynolds MD Feb 17, 2020 01:27
[2020-02-17] MEDS ORDERED: DOCUSATE SODIU100 MG ORAL (01:28)
[2020-02-17 01:30] VITALS: BP 140/92
== END 2020-02-17 01:40 | disposition home or self-care (01) ==
LOC: EDBD 01:06 → EDUNIT# 01:06 → EMR 01:35
DX: K64.9 Unspecified hemorrhoids (principal); L03.116 Cellulitis of left lower limb; I10 Essential (primary) hypertension; J45.909 Unspecified asthma, uncomplicated; Z88.0 Allergy status to penicillin; Z79.82 Long term (current) use of aspirin; Z79.52 Long term (current) use of systemic steroids
CPT/HCPCS: 99282

== ENCOUNTER → 2020-03-24 | Emergency (ER) | payer OTHER ==
[~2020-03-24] VITALS: Ht 157.5 cm; Wt 77.1 kg
[~2020-03-24] MED LIST changes: +ANUSOL-HC30 GM RC; +BACTRIM DS TAB1 EAC1 ORAL; +BENADRYL CRE1 APPLIC TOPIC; +DOCUSATE SODIU100 MG ORAL; +DiphenhydrAMINE 50mg/ml Inj IVP ONE; +Ketorolac 30mg Inj IV ONE; +Metoclopramide 10mg/2ml Inj IVP ONE; +PERMETHRIN60 GM TOPIC; +ROBAXIN-500MG ORAL
--- NOTE | 2020-03-24 14:34 | Emergency Room Report ---
History of Present Illness General Chief Complaint: Abdominal Pain Source: Patient Present Illness HPI Patient presents with several days of right flank pain. She has had this problem in the past. In the past was caused by infected kidney. She denies any fevers or chills. There is no nausea vomiting or diarrhea. She denies any dysuria per se. Yesterday she took a Percocet. The pain is rated 8/10 at this time and aching. It does not radiate. She does not complain of cough or sore throat. Patient also states that she has sciatica. She says that sometimes this pain radiates up into her back into the area where she has pain right now. She was seen in October 2017 for radiculopathy. Patient denies exposure to Covid positive contacts. No sore throat, chest pain, palpitations, shortness of breath, joint pain, rashes, depression, anxiety, visual changes, dizziness, headache. In June 2016 she was diagnosed with opiate dependence and pa drug seeking behavior. She was complaining about pelvic pain at that time. She apparently is seeing a chronic pain specialist. She is prescribed Percocet. Patient admitted January of this year for pancreatitis. Discharge diagnoses: COVID-19 infection Abdominal pain Elevated lipase Marijuana user Allergies: Coded Allergies: PENICILLINS (Verified Adverse Reaction, Unknown, GI UPSET, 12/29/13) COVID-19 Screening Contact w/high risk pt: No Experienced COVID-19 symptoms?: No COVID-19 Testing performed BUTCHER HEAD: No Patient History Past Medical History: see triage record, old chart reviewed Past Surgical History: ivett, hysterectomy Social History: Denies: smoking, alcohol use Social History Narrative She came here on the bus Last Menstrual Period: na Reviewed Nursing Documentation: PMH: Agreed; PSxH: Agreed Nursing Documentation-PMH Past Medical History: No History, Except For Hx Cardiac Problems: Yes Hx Hypertension: Yes Hx Asthma: Yes Hx Cancer: No Hx Gastrointestinal Problems: Yes Hx Neurological Problems: No Hx Cerebrovascular Accident: No - TB Review of Systems All Other Systems: negative except mentioned in HPI Physical Exam Vital Signs Date Time Temp Pulse Resp B/P (MAP) Pulse Ox O2 Delivery O2 Flow Rate FiO2 03/24/20 14:23 97.5 72 18 116/82 (93) 98 Room Air Sp02 EP Interpretation: reviewed, normal General Appearance: well appearing, no apparent distress, GCS 15 Head: normocephalic Eyes: bilateral eye normal inspection, bilateral eye PERRL, bilateral eye EOMI ENT: moist mucus membranes Neck: supple Respiratory: lungs clear, normal breath sounds Cardiovascular #1: regular rate, rhythm Cardiovascular #2: 2+ radial (R) Gastrointestinal: normal inspection, normal bowel sounds, non tender, no mass, non-distended Genitourinary: no CVA tenderness - Although reported right sided flank tenderness Musculoskeletal: normal range of motion, gait/station normal, tender - Lumbar area no bony tenderness Neurologic: alert, oriented x3, grossly normal Psychiatric: mood/affect normal Skin: no rash, warm/dry Medical Decision Making Diagnostic Impression: Primary Impression: Right flank pain Additional Impression: Sciatica Qualified Codes: M54.31 - Sciatica, right side ER Course Patient presents with right flank pain. Differential includes renal stone, pyelonephritis, muscle strain, back strain amongst others. Patient evaluated with labs. Patient treated with Reglan, Benadryl and Toradol as she is riding the bus. Labs significant for normal white count. CMP essentially normal with normal lipase. Urinalysis with 0-2 red cells and 2-4 white blood cells. Patient improved and sleeping. Discussion with patient regarding findings. It appears this may be more related to lumbar pain. Based on exam and laboratory further imaging not indicated at this time. In addition the patient has clinically improved. Discussed results and the need for follow-up with patient. Patient stable for observation as an outpatient. Laboratory Tests Test 03/24/20 14:40 White Blood Count 6.3 K/UL (4.8-10.8) Red Blood Count 4.56 M/UL (4.20-5.40) Hemoglobin 13.8 G/DL (12.0-16.0) Hematocrit 39.3 % (37.0-47.0) Mean Corpuscular Volume 86 FL (80-99) Mean Corpuscular Hemoglobin 30.4 PG (27.0-31.0) Mean Corpuscular Hemoglobin Concent 35.2 G/DL (32.0-36.0) Red Cell Distribution Width 10.8 % (11.6-14.8) L Platelet Count 188 K/UL (150-450) Mean Platelet Volume 6.6 FL (6.5-10.1) Neutrophils (%) (Auto) 49.1 % (45.0-75.0) Lymphocytes (%) (Auto) 37.8 % (20.0-45.0) Monocytes (%) (Auto) 9.2 % (1.0-10.0) Eosinophils (%) (Auto) 1.9 % (0.0-3.0) Basophils (%) (Auto) 2.0 % (0.0-2.0) Prothrombin Time 11.2 SEC (9.30-11.50) Prothrombin Time INR 1.0 (0.9-1.1) Activated Partial Thromboplast Time 27 SEC (23-33) Urine Color Yellow Urine Appearance Clear Urine pH 5 (4.5-8.0) Urine Specific [place] 1.025 (1.005-1.035) Urine Protein 1+ (NEGATIVE) H Urine Glucose (UA) Negative (NEGATIVE) Urine Ketones 1+ (NEGATIVE) H Urine Blood Negative (NEGATIVE) Urine Nitrite Negative (NEGATIVE) Urine Bilirubin Negative (NEGATIVE) Urine Urobilinogen Normal MG/DL (0.0-1.0) Urine Leukocyte Esterase 1+ (NEGATIVE) H Urine RBC 0-2 /HPF (0 - 2) Urine WBC 2-4 /HPF (0 - 2) Urine Squamous Epithelial Cells Moderate /LPF (NONE/OCC) H Urine Bacteria Moderate /HPF (NONE) H Sodium Level 141 MMOL/L (136-145) Potassium Level 3.4 MMOL/L (3.5-5.1) L Chloride Level 101 MMOL/L (98-107) Carbon Dioxide Level 31 MMOL/L (21-32) Anion Gap 10 mmol/L (5-15) Blood Urea Nitrogen 17 mg/dL (7-18) Creatinine 1.0 MG/DL (0.55-1.30) Estimated Glomerular Filtration Rate > 60 mL/min (>60) Glucose Level 95 MG/DL (74-106) Calcium Level 9.5 MG/DL (8.5-10.1) Total Bilirubin 0.4 MG/DL (0.2-1.0) Aspartate Amino Transferase (AST) 15 U/L (15-37) Alanine Aminotransferase (ALT) 12 U/L (12-78) Alkaline Phosphatase 70 U/L (46-116) Total Protein 7.6 G/DL (6.4-8.2) Albumin 4.3 G/DL (3.4-5.0) Globulin 3.3 g/dL Albumin/Globulin Ratio 1.3 (1.0-2.7) Lipase 229 U/L (73-393) Last Vital Signs Date Time Temp Pulse Resp B/P (MAP) Pulse Ox O2 Delivery O2 Flow Rate FiO2 03/24/20 17:00 98.3 86 18 124/64 100 Room Air Status: improved Disposition: HOME, SELF-CARE Condition: Improved Scripts Methocarbamol* (ROBAXIN-500*) 500 Mg Tablet 500 MG ORAL TID PRN for muscle spasms, #10 TAB 0 Refills Prov: Cedric Longoria MD 03/24/20 Cedric Longoria MD Mar 24, 2020 14:34
--- NOTE | 2020-03-24 14:35 | NUR ---
ED Nurse Note: Pt ambulated to ED from home d/t R flank pain that radiates on her lower back going on for 2 days. Pt is AOx4, calm and cooperative to care, pt denies any diarrhea, nausea/vomiting. Pt's VSS, on RA, afebrile on triage. Pt verbalized that she had hx of kidney stones few years ago.
[2020-03-24 14:46] VITALS: BP 116/82
[2020-03-24 15:11] LABS: EOSINOPHILS % (AUTO) 1.9 % (0.0-3.0); HEMATOCRIT 39.3 % (37.0-47.0); HEMOGLOBIN 13.8 G/DL (12.0-16.0); LYMPHOCYTES % (AUTO) 37.8 % (20.0-45.0); MEAN CORPUSCULAR VOLUME 86 FL (80-99); MONOCYTES % (AUTO) 9.2 % (1.0-10.0); NEUTROPHILS % (AUTO) 49.1 % (45.0-75.0); PLATELET COUNT 188 K/UL (150-450); RED BLOOD COUNT 4.56 M/UL (4.20-5.40); RED CELL DISTRIBUTION WIDTH 10.8 % (11.6-14.8); WHITE BLOOD COUNT 6.3 K/UL (4.8-10.8)
[2020-03-24 15:14] LABS: APPEARANCE,URINE CLEAR; BILIRUBIN, URINE NEGATIVE (NEGATIVE); GLUCOSE, URINE (UA) NEGATIVE (NEGATIVE); KETONES,URINE 1+ (NEGATIVE); LEUKOCYTE ESTERASE ,URINE 1+ (NEGATIVE); NITRITE,URINE NEGATIVE (NEGATIVE); PH,URINE 5 (4.5-8.0); PROTEIN,URINE 1+ (NEGATIVE); UROBILINOGEN,URINE NORMAL MG/DL (0.0-1.0)
[2020-03-24 15:24] LABS: COLOR,URINE YELLOW
[2020-03-24 15:37] LABS: ANION GAP 10 mmol/L (5-15); BLOOD UREA NITROGEN 17 mg/dL (7-18); CALCIUM 9.5 MG/DL (8.5-10.1); CARBON DIOXIDE 31 MMOL/L (21-32); CHLORIDE 101 MMOL/L (98-107); POTASSIUM 3.4 MMOL/L (3.5-5.1); SODIUM 141 MMOL/L (136-145)
[2020-03-24 15:41] LABS: ALANINE AMINOTRANSFERASE 12 U/L (12-78); ALBUMIN 4.3 G/DL (3.4-5.0); ALBUMIN/GLOBULIN RATIO 1.3 (1.0-2.7); ALKALINE PHOSPHATASE 70 U/L (46-116); ASPARTATE AMINO TRANSFERASE 15 U/L (15-37); BILIRUBIN,TOTAL 0.4 MG/DL (0.2-1.0)
[2020-03-24 17:00] VITALS: BP 124/64
--- NOTE | 2020-03-24 17:01 | NUR ---
ED Nurse Note: Pt cleared by health care Provider for discharge. DC instructions/prescription was given and explained to pt and verbalized understanding of teachings. All medical deviecs such as ID band removed. Pt is AAO x4, ambulatory and left with all personal belongings.
== END | disposition home or self-care (01) ==
LOC: EMR 14:45
DX: R10.9 Unspecified abdominal pain (principal); M54.31 Sciatica, right side; Z86.19 Personal history of other infectious and parasitic diseases; Z88.0 Allergy status to penicillin; I10 Essential (primary) hypertension
CPT/HCPCS: 36415; 80053; 81003; 83690; 85025; 85610; 85730; 87086; 96361; 96374; 96375; J1200; J1885; J2765; J7030; Z7502; 99284

== ENCOUNTER 2020-06-22 17:03 | Emergency (ER) | payer OTHER ==
[~2020-06-22] VITALS: Ht 165.1 cm; Wt 72.6 kg
[~2020-06-22 17:03] MED LIST changes: -DiphenhydrAMINE 50mg/ml Inj IVP ONE; -Ketorolac 30mg Inj IV ONE; -Metoclopramide 10mg/2ml Inj IVP ONE
[2020-06-22] MEDS ORDERED: Ketorolac 30mg Inj IM ONE (17:30)
--- NOTE | 2020-06-22 17:30 | NUR ---
ED Nurse Note: Pt BIBA into ED with L ankle pain 12/16. Pt is alert and orientedx4, uses a wheelchair for nowdue to ankle pain. Pt has slight swelling on L ankle, no wounds. She denies bodyaches, chills, fever, NVD.
--- NOTE | 2020-06-22 18:30 | Emergency Room Report ---
History of Present Illness General Chief Complaint: Lower Extremity Injury Present Illness HPI 59 YO female presents to the ED c/o 10 out of 10 in severity Left ankle pain x 1 day. Progressive onset. Pt. report doing a lot of walking on uneven surfaces lately. Pt. denies trauma or fall. She reports feeling slight achiness in the ankle last night. Patient denies swelling, erythema, warmth. She denies history of gout or pseudogout. She does report history of arthritis. She denies fevers or chills. She denies paresthesias, weakness or inability to full y bear weight. She denies bruising or skin color changes. She denies calf pain. She reports walking exacerbates her pain. She reports some relief with rest. No other aggravating or relieving factors. Allergies: Coded Allergies: PENICILLINS (Verified Adverse Reaction, Unknown, GI UPSET, 12/29/13) COVID-19 Screening Contact w/high risk pt: No Experienced COVID-19 symptoms?: No COVID-19 Testing performed GIFTED TEACHER: No Patient History Past Medical History: see triage record Past Surgical History: none Pertinent Family History: none Now: No Reviewed Nursing Documentation: PMH: Agreed; PSxH: Agreed Nursing Documentation-PMH Hx Cardiac Problems: Yes Hx Hypertension: Yes Hx Asthma: Yes Hx Cancer: No Hx Gastrointestinal Problems: Yes Hx Neurological Problems: No Hx Cerebrovascular Accident: No - TB Review of Systems All Other Systems: negative except mentioned in HPI Physical Exam Vital Signs Date Time Temp Pulse Resp B/P (MAP) Pulse Ox O2 Delivery O2 Flow Rate FiO2 06/22/20 17:01 98.4 88 18 134/84 (101) 98 Room Air Sp02 EP Interpretation: reviewed, normal General Appearance: no apparent distress, alert, GCS 15, non-toxic Head: normocephalic, atraumatic Eyes: bilateral eye normal inspection, bilateral eye PERRL ENT: hearing grossly normal, normal voice Neck: full range of motion Respiratory: chest non-tender, lungs clear, normal breath sounds, speaking full sentences Cardiovascular #1: no edema, normal capillary refill Cardiovascular #2: 2+ dorsalis pedis (L) Musculoskeletal: back normal, normal range of motion, digits/nails normal, no calf tenderness, gait/station normal, no lower extremity edema, tender - Lateral aspect of the left ankle, no significant swelling, no erythema or warmth. Neurologic: alert, motor strength/tone normal, oriented x3, sensory intact, responsive, speech normal, grossly normal Psychiatric: judgement/insight normal Skin: no rash, normal color Medical Decision Making CASEY Attestation Dr. Cruz Is my supervising Physician whom patient management has been discussed with. Diagnostic Impression: Primary Impression: Left ankle sprain Qualified Codes: S93.492A - Sprain of other ligament of left ankle, initial encounter ER Course 59 YO female presents to the ED c/o 10 out of 10 in severity Left ankle pain x 1 day. Progressive onset. Pt. report doing a lot of walking on uneven surfaces lately. Pt. denies trauma or fall. She reports feeling slight achiness in the ankle last night. Patient denies swelling, erythema, warmth. She denies history of gout or pseudogout. She does report history of arthritis. She denie s fevers or chills. She denies paresthesias, weakness or inability to fully bear weight. She denies bruising or skin color changes. She denies calf pain. She reports walking exacerbates her pain. She reports some relief with rest. No other aggravating or relieving factors. Ddx considered but are not limited to Fracture, dislocation, contusion, Sprain/Strain/Spasm, Gout/pseudo gout, DVT, arthritis, cellulitis just to name a few. Vital signs: are WNL, pt. is afebrile H&PE are most consistent with musculoskeletal injury will perform imaging to r/o fractures/dislocations. ORDERS: - X-ray Right ankle 3 views - negative for fx, Dislocation, or significant soft tissue injury, per preliminary read in ED, and signed by CASEY Ernandez, my supervising physician has reviewed, and agrees with my interpretation. ED INTERVENTIONS: -30 mg Toradol IM Eddi wrap applied to the right ankle by property technician. Pt. remains neurovascularly intact. -Patient is provided with crutches and instructed on their use -I do not identify an emergent condition at this time. With current presentation, pt. is stable for close outpatient follow up and conservative treatment. D/w pt. to return promptly to ED with worsening or new symptoms.- Pt. verbalizes' understanding and agreement with proposed treatment plan. DISCHARGE: At this time pt. is stable for d/c to home. Will provide printed patient care instructions, and any necessary prescriptions. Care plan and follow up instructions have been discussed with the patient prior to discharge. Other X-Ray Diagnostic Results Other X-Ray Diagnostic Results : X-Ray ordered: Left Ankle # of Views/Limited Vs Complete: 3 View Indication: Pain EP Interpretation: Yes PA Xray: Interpretation reviewed, by supervising MD, and agrees with findings. Interpretation: no dislocation, no soft tissue swelling, no fractures Impression: No acute disease Electronically Signed by: Lisseth Ernandez PA-C Last Vital Signs Date Time Temp Pulse Resp B/P (MAP) Pulse Ox O2 Delivery O2 Flow Rate FiO2 06/22/20 17:01 98.4 88 18 134/84 (101) 98 Room Air Disposition: HOME, SELF-CARE Condition: Stable Scripts Ibuprofen* (MOTRIN*) 600 Mg Tablet 600 MG ORAL THREE TIMES A DAY, #20 TAB Prov: Lisseth Ernandez 06/22/20 Referrals: [facility]ERRING (PCP) [facility] Patient Instructions: Ankle Sprain Additional Instructions: Take medications as directed. Follow up with a Primary Care Provider in 3-5 days, even if your symptoms have resolved. --Please review list of primary care clinics, if you do not already have a primary care provider Return sooner to ED if new symptoms occur, or current symptoms become worse. - Please note that this Emergency Department Report was dictated using [employer] private technology software, occasionally this can lead to erroneous entry secondary to interpretation by the dictation equipment. Lisseth Ernandez Jun 22, 2020 18:30
[2020-06-22] MEDS ORDERED: IBUPROFEN600 M1 ORAL (18:33)
[2020-06-22 19:06] VITALS: BP 132/80
--- NOTE | 2020-06-22 19:06 | NUR ---
ER DISCHARGE NOTE: Patient is cleared to be discharged per ERMD, pt is aox4, on room air, with stable vital signs. pt was given dc and prescription instructions, pt was able to verbalize understanding, pt id band removed. pt is able to ambulate with steady gait. pt took all belongings.
--- NOTE | 2020-06-23 14:48 | Diagnostic Imaging Report ---
Indication: Left ankle pain Technique: 3 views of the left ankle Comparison: none Findings: No acute fracture. No dislocation. Joint spaces are preserved. There is a small plantar spur Impression: No acute process
== END 2020-06-22 19:08 | disposition home or self-care (01) ==
LOC: EDBD 17:03 → EMR 17:34
DX: S93.492A Sprain of other ligament of left ankle, initial encounter (principal); I11.9 Hypertensive heart disease without heart failure; J45.909 Unspecified asthma, uncomplicated; Y93.01 Activity, walking, marching and hiking; Y92.9 Unspecified place or not applicable; Z79.899 Other long term (current) drug therapy; Z88.0 Allergy status to penicillin
CPT/HCPCS: 73610; 96372; J1885; Z7502; 99283

== ENCOUNTER 2020-07-25 19:38 | Emergency (ER) | payer OTHER ==
[~2020-07-25] VITALS: Ht 162.6 cm; Wt 80.3 kg
[~2020-07-25 19:38] MED LIST changes: +IBUPROFEN600 M1 ORAL
--- NOTE | 2020-07-25 19:51 | Emergency Room Report ---
History of Present Illness General Chief Complaint: Abdominal Pain Source: Patient Present Illness HPI Disclaimer: Please note that this report is being documented using [employer] technology. This can lead to erroneous entry secondary to incorrect interpretation by the dictating instrument. HPI: 59-year-old female history of gastritis and pancreatitis presents for abdominal pain. Symptoms present 1 week. She has been eating a lot of greasy food including chili, [place] fries and burgers. Reports upper abdominal pain and cramping and burning. Present with eating and not eating. Reports nausea and loose stools lately. Denies fever or chills. Denies chest pain, cough or congestion. No prior history of abdominal surgery. Patient saw PMD earlier this week and scheduled for outpatient EGD with surface hydrologist. States she was restarted on protonix. Patient states this is not helping. PMH: Hypercholesterolemia, arthritis, pancreatitis PSH: Denied Allergies: Penicillin Social Hx: THC use Allergies: Coded Allergies: PENICILLINS (Verified Adverse Reaction, Unknown, GI UPSET, 12/29/13) COVID-19 Screening Contact w/high risk pt: No Experienced COVID-19 symptoms?: No COVID-19 Testing performed OIL TREATER: No Nursing Documentation-PMH Past Medical History: No History, Except For Hx Hypertension: Yes Hx Asthma: Yes Hx Cancer: No Hx Gastrointestinal Problems: Yes Hx Neurological Problems: No Hx Cerebrovascular Accident: No - TB Review of Systems All Other Systems: negative except mentioned in HPI Physical Exam Vital Signs Date Time Temp Pulse Resp B/P (MAP) Pulse Ox O2 Delivery O2 Flow Rate FiO2 07/25/20 19:33 97.9 70 18 148/84 (105) 96 Room Air General: Awake and alert, no acute distress HEENT: NC/AT. EOMI. Cardiovascular: RRR. S1 and S2 normal. No murmur appreciated Resp: Normal work of breathing. No cough, wheezing or crackles appreciated Abdomen: Abdomen is soft, nondistended. Tender palpation in the upper quadrants periumbilical region, epigastric region. Minimal tenderness in the lower quadrants. Skin: Intact. No abrasions, laceration or rash over the exposed skin MSK: Normal tone and bulk. Moving all extremities. No obvious deformity. Neuro: Awake and alert. Mentating appropriately. Medical Decision Making ER Course 59-year-old female presents for evaluation of abdominal pain. Differential includes was not limited to acute on chronic gastritis, pancreatitis, cholecystitis, viral syndrome, food poisoning among others. Patient received IV fluids, antiemetics, GI cocktail and pain medication. Labs including lipase returned within normal limits. Her abdominal pain appears to be a chronic issue. She is reportedly scheduled for outpatient EGD with gastroenterology. Urinalysis showed bacteria but only 1+ leukocyte esterase, no white cells and occasional squamous cells. Suspect contaminant as the patient has no symptoms of urinary tract infection is no lower abdominal tenderness. Will wait for culture results. Stable for outpatient follow-up. Laboratory Tests Test 07/25/20 20:15 07/25/20 21:20 White Blood Count 6.8 K/UL (4.8-10.8) Red Blood Count 4.37 M/UL (4.20-5.40) Hemoglobin 13.4 G/DL (12.0-16.0) Hematocrit 40.4 % (37.0-47.0) Mean Corpuscular Volume 92 FL (80-99) Mean Corpuscular Hemoglobin 30.6 PG (27.0-31.0) Mean Corpuscular Hemoglobin Concent 33.2 G/DL (32.0-36.0) Red Cell Distribution Width 12.4 % (11.6-14.8) Platelet Count 190 K/UL (150-450) Mean Platelet Volume 7.9 FL (6.5-10.1) Neutrophils (%) (Auto) 50.7 % (45.0-75.0) Lymphocytes (%) (Auto) 38.2 % (20.0-45.0) Monocytes (%) (Auto) 7.5 % (1.0-10.0) Eosinophils (%) (Auto) 1.7 % (0.0-3.0) Basophils (%) (Auto) 1.9 % (0.0-2.0) Sodium Level 144 MMOL/L (136-145) Potassium Level 4.1 MMOL/L (3.5-5.1) Chloride Level 107 MMOL/L (98-107) Carbon Dioxide Level 30 MMOL/L (21-32) Anion Gap 7 mmol/L (5-15) Blood Urea Nitrogen 17 mg/dL (7-18) Creatinine 1.0 MG/DL (0.55-1.30) Estimated Glomerular Filtration Rate > 60 mL/min (>60) Glucose Level 94 MG/DL (74-106) Calcium Level 9.3 MG/DL (8.5-10.1) Total Bilirubin 0.4 MG/DL (0.2-1.0) Aspartate Amino Transferase (AST) 19 U/L (15-37) Alanine Aminotransferase (ALT) 23 U/L (12-78) Alkaline Phosphatase 83 U/L (46-116) Total Protein 8.1 G/DL (6.4-8.2) Albumin 3.8 G/DL (3.4-5.0) Globulin 4.3 g/dL Albumin/Globulin Ratio 0.9 (1.0-2.7) L Lipase 241 U/L (73-393) Urine Color Yellow Urine Appearance Clear Urine pH 5 (4.5-8.0) Urine Specific [place] 1.025 (1.005-1.035) Urine Protein Negative (NEGATIVE) Urine Glucose (UA) Negative (NEGATIVE) Urine Ketones 1+ (NEGATIVE) H Urine Blood Negative (NEGATIVE) Urine Nitrite Negative (NEGATIVE) Urine Bilirubin Negative (NEGATIVE) Urine Urobilinogen Normal MG/DL (0.0-1.0) Urine Leukocyte Esterase 1+ (NEGATIVE) H Urine RBC 0-2 /HPF (0 - 2) Urine WBC 0-2 /HPF (0 - 2) Urine Squamous Epithelial Cells Occasional /LPF Urine Bacteria Moderate /HPF (NONE) H Last Vital Signs Date Time Temp Pulse Resp B/P (MAP) Pulse Ox O2 Delivery O2 Flow Rate FiO2 07/25/20 19:33 97.9 70 18 148/84 (105) 96 Room Air Disposition: HOME, SELF-CARE Condition: Stable Moe Reynolds MD Jul 25, 2020 19:51
[2020-07-25] MEDS ORDERED: Mylanta II UD 30ml ORAL ONE ×2 (20:00→22:30)
[2020-07-25] MEDS ORDERED: Lidocaine 2% Visc 15ml soln ORAL ONE ×2 (20:00→22:30)
[2020-07-25] MEDS ORDERED: Dicyclomine HCl 10mg/5ml oral soln ORAL ONE ×2 (20:00→22:30)
[2020-07-25] MEDS ORDERED: Morphine Sulfate 4mg/ml Inj (IV USE ONLY) IVP ONE (20:00)
--- NOTE | 2020-07-25 20:10 | NUR ---
ED Nurse Note: Patient brought in by EMS complaints of abdominal pain and nausea, vitals stable, ambulatory, recent diagnosis of pancreatitis, blood specimens drawn and sent to lab
[2020-07-25 20:18] VITALS: BP 148/84
[2020-07-25 20:39] LABS: BASOPHILS % (AUTO) 1.9 % (0.0-2.0); EOSINOPHILS % (AUTO) 1.7 % (0.0-3.0); HEMATOCRIT 40.4 % (37.0-47.0); HEMOGLOBIN 13.4 G/DL (12.0-16.0); LYMPHOCYTES % (AUTO) 38.2 % (20.0-45.0); MEAN CORPUSCULAR VOLUME 92 FL (80-99); MONOCYTES % (AUTO) 7.5 % (1.0-10.0); NEUTROPHILS % (AUTO) 50.7 % (45.0-75.0); PLATELET COUNT 190 K/UL (150-450); RED BLOOD COUNT 4.37 M/UL (4.20-5.40); RED CELL DISTRIBUTION WIDTH 12.4 % (11.6-14.8); WHITE BLOOD COUNT 6.8 K/UL (4.8-10.8)
[2020-07-25 20:45] LABS: ANION GAP 7 mmol/L (5-15); BLOOD UREA NITROGEN 17 mg/dL (7-18); CALCIUM 9.3 MG/DL (8.5-10.1); CARBON DIOXIDE 30 MMOL/L (21-32); CHLORIDE 107 MMOL/L (98-107); POTASSIUM 4.1 MMOL/L (3.5-5.1); SODIUM 144 MMOL/L (136-145)
[2020-07-25 20:49] LABS: ALANINE AMINOTRANSFERASE 23 U/L (12-78); ALBUMIN 3.8 G/DL (3.4-5.0); ALBUMIN/GLOBULIN RATIO 0.9 (1.0-2.7); ALKALINE PHOSPHATASE 83 U/L (46-116); ASPARTATE AMINO TRANSFERASE 19 U/L (15-37); BILIRUBIN,TOTAL 0.4 MG/DL (0.2-1.0)
[2020-07-25 22:00] LABS: APPEARANCE,URINE CLEAR; BILIRUBIN, URINE NEGATIVE (NEGATIVE); GLUCOSE, URINE (UA) NEGATIVE (NEGATIVE); KETONES,URINE 1+ (NEGATIVE); LEUKOCYTE ESTERASE ,URINE 1+ (NEGATIVE); NITRITE,URINE NEGATIVE (NEGATIVE); PH,URINE 5 (4.5-8.0); PROTEIN,URINE NEGATIVE (NEGATIVE); UROBILINOGEN,URINE NORMAL MG/DL (0.0-1.0)
[2020-07-25 22:05] LABS: COLOR,URINE YELLOW
[2020-07-25] MEDS ORDERED: PROTONIX40 MG ORAL (22:17)
[2020-07-25 22:23] VITALS: BP 136/82
--- NOTE | 2020-07-25 22:23 | NUR ---
ER DISCHARGE NOTE: Patient is cleared to be discharged per ERMD, pt is aox4, on room air, with stable vital signs. pt was given dc instructions, pt was able to verbalize understanding, pt id band and iv site removed without complications. pt is able to ambulate with steady gait. pt took all belongings.
== END 2020-07-25 23:00 | disposition home or self-care (01) ==
LOC: EDBD 19:38 → EMR 20:00
DX: R10.9 Unspecified abdominal pain (principal); R11.0 Nausea; E78.00 Pure hypercholesterolemia, unspecified; M19.90 Unspecified osteoarthritis, unspecified site; Z88.0 Allergy status to penicillin; I10 Essential (primary) hypertension
CPT/HCPCS: 36415; 80053; 81003; 83690; 85025; 87086; 96361; 96374; 96375; J2270; J2405; J7030; S0028; Z7502; 99284